=== PATIENT | male | born 1955 | race Caucasian/White ===

== ENCOUNTER 2021-05-22 17:39 | Inpatient (IN) | payer BC, SELFPAY ==
[2021-05-22] VITALS (22 sets, daily range): BP systolic 106–168; BP diastolic 53–73; PULSE 73–96; RESP 18–38; TEMP 36.8–37.1; O2SAT 92–100; BMI 24.5
--- NOTE | 2021-05-22 17:54 | DI.RAD.S_ITS ---
PROCEDURE: XR CHEST 1V INDICATIONS: chest pain TECHNIQUE: One view of the chest was acquired. COMPARISON: None. FINDINGS: Surgical changes and devices: Sternal wires and fixation devices are noted. Lungs and pleura: Bibasilar opacities are present predominantly within the bases. Blunting of the costophrenic angles are present. Mediastinum: Mediastinal contours appear normal. Heart size is normal. Bones and chest wall: No suspicious bony lesions. Overlying soft tissues appear unremarkable. IMPRESSION: Mild bilateral effusions with superimposed edema versus atelectasis/pneumonia. Dictated by: Latoya Perry M.D. on 05/22/2021 at 18:24 Approved by: Latoya Perry M.D. on 05/22/2021 at 18:24
--- NOTE | 2021-05-22 18:06 | ED.SOB ---
HPI - SOB/Dyspnea General Chief Complaint: Shortness of Breath/Dyspnea Stated Complaint: DIFFICULTY BREATHING/PAIN Time Seen by Provider: 05/22/21 18:05 Source: patient and family () Mode of arrival: Wheelchair Limitations: no limitations History of Present Illness HPI Narrative: This is a 66-year-old male who had a cardiac arrest with CPR performed when he was about to be intubated a week ago at [facility]. Patient states that he was told he was having an impending heart attack and was transferred to [facility]. Patient states they talked about catheterizing the patient but he did not wish to do this secondary to concerns that he would not tolerate anesthesia. He is clear that he is DNR/DNI but is open to other medical interventions such as BiPAP or medication. Patient states that he has had pain between both shoulder blades into his right arm since the event. He has had increasing shortness of breath. He states the 1st 2 days he was discharged felt okay and has had increasing dyspnea. Patient was discharged home on home O2. He is typically using 2-3 L daily. He has had green productive cough no fevers. No nasal congestion. He reports testing positive for RSV he has not had any nausea or vomiting. No diaphoresis. He denies any diarrhea or new urinary changes. Patient is on Xarelto daily cording him in his he does have history of atrial fibrillation, he has had a multi vessel CABG but no stents afterwards. Patient does take insulin for diabetes, uses albuterol and nebs, infliximab intravenously for rheumatoid arthritis, levothyroxine, metoprolol, rosuvastatin, spironolactone and is also on ellipse. Patient did have his Lasix, hydralazine stopped. He is accompanied by his who assists with a large amount of his history. Related Data Home Medications Medication Instructions Recorded Confirmed acetaminophen 325 mg capsule 650 mg PO Q6H PRN 05/22/21 05/22/21 albuterol 90 mcg/actuation aerosol 90 mcg INHALATION Q6HR PRN 05/22/21 05/22/21 inhaler aspirin 81 mg capsule 81 mg PO QAM 05/22/21 05/22/21 bisacodyl 5 mg tablet,delayed 5 mg PO BID PRN 05/22/21 05/22/21 release (Dulcolax (bisacodyl)) cholecalciferol (vitamin D3) 25 12.5 mcg PO QAM 05/22/21 05/22/21 mcg (1,000 unit) tablet dulaglutide 1.5 mg/0.5 mL 0.75 mg SUBCUT QWEEK 05/22/21 05/22/21 subcutaneous pen injector (Trulicity) ferrous sulfate 325 mg (65 mg 325 mg PO Q OTHER DAY 05/22/21 05/22/21 iron) capsule,extended release fluticasone fur. 200 mcg-umeclid 1 inh INHALATION QAM 05/22/21 05/22/21 62.5 mcg-vilant 25 mcg inhalat.powder (Trelegy Ellipta) folic acid 1 mg tablet 1 mg PO BEDTIME 05/22/21 05/22/21 gabapentin 100 mg capsule 100 mg PO TID 05/22/21 05/22/21 glimepiride 4 mg tablet 4 mg PO QAM 05/22/21 05/22/21 infliximab 100 mg intravenous 100 mg IV Q4W 05/22/21 05/22/21 solution insulin aspart U-100 100 unit/mL 1 sliding scale dose SUBCUT 05/22/21 05/22/21 subcutaneous cartridge USEASDIRECTD insulin glargine 100 unit/mL 10 unit SUBCUT QPM 05/22/21 05/22/21 subcutaneous cartridge ipratropium 0.5 mg-albuterol 3 mg 3 ml INHALATION Q6HR 05/22/21 05/22/21 (2.5 mg base)/3 mL nebulization soln levothyroxine 137 mcg tablet 137 mcg PO QAM 05/22/21 05/22/21 methotrexate (PF) 22.5 mg/0.4 mL 22.5 mg SUBCUT QWEEK 05/22/21 05/22/21 subcutaneous auto-injector (Otrexup (PF)) metoprolol succinate 25 mg 12.5 mg PO QAM 05/22/21 05/22/21 tablet,extended release 24 hr montelukast 10 mg tablet 10 mg PO BEDTIME 05/22/21 05/22/21 xfodssdhnbvz-fgrwrugy-zcummy tablet 1 tab PO QAM 05/22/21 05/22/21 nitroglycerin 0.4 mg sublingual See Rx Instructions .ROUTE .COMPLEX 05/22/21 05/22/21 tablet pantoprazole 40 mg tablet,delayed 30 mg PO QAM 05/22/21 05/22/21 release pramipexole 1 mg tablet 2 mg PO BEDTIME 05/22/21 05/22/21 rivaroxaban 20 mg tablet (Xarelto) 20 mg PO QAM 05/22/21 05/22/21 rosuvastatin 40 mg tablet 40 mg PO BEDTIME 05/22/21 05/22/21 spironolactone 25 mg tablet 25 mg PO QAM 05/22/21 05/22/21 varenicline 1 mg tablet 1 mg PO BID 05/22/21 05/22/21 Allergies Allergy/AdvReac Type Severity Reaction Status Date / Time No Known Drug Allergies Allergy Verified 05/22/21 18:44 Review of Systems Review of Systems ROS Unobtainable: All systems reviewed & are unremarkable except as noted in HPI and below Patient History Medical History CAD (coronary artery disease) COPD (chronic obstructive pulmonary disease) Diabetes type 2, uncontrolled HFrEF (heart failure with reduced ejection fraction) History of cardiac arrest Hx of non-ST elevation myocardial infarction (NSTEMI) Hx of pneumonia due to Klebsiella pneumoniae Hypothyroidism KAYLAN treated with BiPAP Paroxysmal atrial fibrillation Tobacco dependence Surgical History Hx of four vessel coronary artery bypass graft Hx of prior ablation treatment Family History Father Alcoholism and drug addiction in family Mother Alzheimer disease Social History household members: spouse Smoking Status: Former smoker alcohol intake: never Exam Narrative Exam Narrative: GEN: Male appearing older than stated age, alert and oriented x 3, patient appears to be in moderate distress. HEENT: Atraumatic, pupils are equal round reactive to light, extraocular movements are intact, nares are clear. HEART: Regular rate and rhythm without murmur, clicks, rubs. Positive JVD. Bilateral lower pedal edema. LUNGS:Lungs mild crackles bilateral bases, no wheezes, chest moves symmetrically, positive for tachypnea. Speaks in 4-5 word sentences. ABD:bowel sounds normal, soft, non-tender, nondistended, no guarding, rebound, rigidity, no masses noted, no hepatosplenomegaly :No CVA tenderness MSCL: Non-tender, full range of motion, NEURO:CN 2-12 intact, sensation normal SKIN: No rash, skin changes or other changes noted. Initial Vital Signs Initial Vital Signs: Vital Signs Temperature 98.8 F 05/22/21 18:00 Course Orders Ordered: ED Orders 05/22/21 19:50 Troponin I Stat 05/22/21 20:35 EKG-12 Lead Stat Albuterol/Ipratropium (Albuterol/Ipratropium 3 Ml Ampul) 3 ml INH [id number] [facility] Last Admin: 05/23/21 01:02 Dose: 3 ml Documented by: LY Aspirin (Aspirin 81 Mg Chew Tab) 81 mg PO DAILY [facility] Atorvastatin Calcium (Atorvastatin 20 Mg Tablet) 80 mg PO BEDTIME [facility] Bisacodyl (Bisacodyl 5 Mg Tablet) 5 mg PO BID PRN PRN Reason: Constipation Dextrose (Dextrose 50 % In Water 25 Gm/50 Ml Syringe) 25 gm IV PRN PRN PRN Reason: Hypoglycemia Insulin Glargine (Insulin Glargine 100 Unit/Ml 3ml Pen) 10 unit SUBCUT QPM [facility] Insulin Human Lispro (Insulin Lispro 100 Unit/Ml 3ml Vial) 0 unit SUBCUT ACHS [facility]; Protocol Levothyroxine Sodium (Levothyroxine 25 Mcg Tablet) 25 mcg PO 0600 [facility] Levothyroxine Sodium (Levothyroxine 112 Mcg Tablet) 112 mcg PO 0600 [facility] Metoprolol Succinate (Metoprolol Er 25 Mg Tablet) 12.5 mg PO DAILY [facility] Last Admin: 05/23/21 01:22 Dose: 12.5 mg Documented by: TRUMAN Montelukast Sodium (Montelukast 10 Mg Tablet) 10 mg PO BEDTIME [facility] Morphine Sulfate (Morphine 2 Mg/Ml Inj) 2 mg IV Q4HR PRN PRN Reason: Pain, Moderate (4-6) Last Admin: 05/23/21 01:36 Dose: 2 mg Documented by: TRUMAN Naloxone HCl (Naloxone 0.4 Mg/Ml Vial) 0.2 mg IV Q2MIN PRN PRN Reason: Opiate Reversal Nicotine (Nicotine 14 Patch) 14 mg TOP DAILY [facility] Last Admin: 05/23/21 01:30 Dose: 14 mg Documented by: TRUMAN Nitroglycerin (Nitroglycerin 0.4 Mg Sl Tab) 0.4 mg SL [id number] PRN PRN Reason: Chest Pain Ondansetron HCl (Ondansetron 4 Mg/2 Ml Inj) 4 mg IV Q8HR PRN PRN Reason: Nausea And Vomiting Pantoprazole Sodium (Pantoprazole Dr 40 Mg Tablet) 40 mg PO DAILY [facility] Pramipexole Dihydrochloride (Pramipexole 1 Mg Tablet) 2 mg PO BEDTIME [facility] Rivaroxaban (Rivaroxaban 10 Mg Tablet) 20 mg PO DAILYCC [facility] Sennosides (Sennosides 8.6 Mg Tablet) 17.2 mg PO BEDTIME TRACY Discontinued Medications Hydrocodone Bitart/Acetaminophen (Hydrocodone/Acet 5/325 Tablet) 2 tab PO NOW ONE Stop: 05/22/21 19:34 Last Admin: 05/22/21 19:45 Dose: 2 tab Documented by: MOLLY Furosemide (Furosemide 40 Mg/4 Ml Vial) 40 mg IV NOW ONE Stop: 05/22/21 18:53 Last Admin: 05/22/21 19:03 Dose: 40 mg Documented by: RHYS Reevaluation(s) Reevaluation #1: Patient states no change in his breathing but does not feel that he is worsening at this time. He and his both state he uses CPAP overnight. Consultations Consultation #1: Dr. Mcmullen for Dr. Borden for cardiology. No additional recommendations at this time. They do not have access to records tonight. We discussed reported history although have not obtain records. He agrees with current plan and if patient is felt to require catheterization at some point they are happy to reconsult. Consultation #2: Chio Escalona NP hospitalist service. Discussed patient appears to be in CHF exacerbation. He is not wheezy does not appear to be having a COPD exacerbation. He has described some green productive sputum, procalcitonin negative he has been afebrile. He has bilateral pulmonary effusions on x-ray with a BNP of 6000. Patient was given a dose of Lasix here in the department. We did discuss and his suspicion for pulmonary emboli is much lower as he has been on Xarelto but we did discuss obtaining an angiography if they would like and this was deferred by RODRÍGUEZ Escalona. Patient has only been hypoxic when he starts to fall asleep and does normally uses CPAP at night requiring O2. Vital Signs Vital signs: Vital Signs - 8 hr 05/22/21 19:30 05/22/21 19:45 05/22/21 20:00 Pulse Rate 92 H 89 96 H Respiratory Rate 37 H 38 H 38 H Blood Pressure 140/65 146/70 H 149/73 H Pulse Oximetry 94 96 96 05/22/21 20:15 05/22/21 20:30 05/22/21 20:45 Pulse Rate 92 H 85 84 Respiratory Rate 26 H 25 H 24 Blood Pressure 144/64 H 136/62 117/56 L Pulse Oximetry 95 93 95 05/22/21 21:00 05/22/21 21:15 05/22/21 21:30 Pulse Rate 89 91 H 85 Respiratory Rate 30 H 37 H 23 Blood Pressure 117/59 L 115/71 116/69 Pulse Oximetry 92 94 95 05/22/21 21:45 Pulse Rate 83 Respiratory Rate 24 Blood Pressure 130/67 Pulse Oximetry 95 MDM - SOB/Dyspnea Lab Data Result diagrams: 05/22/21 18:00 05/22/21 18:00 Labs: Lab Results 05/22/21 05/22/21 05/22/21 Range/Units 18:00 18:00 18:00 WBC 9.4 (4.5-11.0) X10^3/uL RBC 3.22 L (4.5-5.9) X10^6/uL Hgb 9.7 L (13.5-17.5) g/dL Hct 29.5 L (41-53) % MCV 91.7 (80-100) fL MCH 30.0 (26-34) PG MCHC 32.8 (30-36) % RDW 18.8 H (11.6-14.8) % Plt Count 553 H (150-400) X10^3/uL Neut % (Auto) 78.1 H (50-75) % Lymph % (Auto) 17.5 L (25-40) % [place] % (Auto) 1.6 L (3-14) % Eos % (Auto) 2.1 (2-4) % Baso % (Auto) 0.7 (0-2) % Neut # (Auto) 7400 H (8496-0429) /uL Lymph # (Auto) 1700 (7950-4717) /uL [place] # (Auto) 200 (0-900) /uL Eos # (Auto) 200 (0-450) /uL Baso # (Auto) 100 (0-100) /uL Sodium 139 (137-145) mmol/L Potassium 5.2 H (3.4-5.1) mmol/L Chloride 104 (98-107) mmol/L Carbon Dioxide 34 H (22-32) mmol/L BUN 21 H (9-20) mg/dL Creatinine 1.24 (0.66-1.25) mg/dL Estimated GFR 58.7 L (>60) mL/min BUN/Creatinine Ratio 16.9 (6-22) Glucose 118 H (80-110) mg/dL Hemoglobin A1c (4.0-6.0) % Calcium 10.0 (8.4-10.2) mg/dL Magnesium 2.4 H (1.6-2.3) mg/dL Total Bilirubin 0.5 (0.2-1.3) mg/dL AST 46 (17-59) IU/L ALT 40 (<50) IU/L Alkaline Phosphatase 311 H (38-126) U/L Total Creatine Kinase < 20 L (55-170) U/L CK-MB (CK-2) TNP CK-MB (CK-2) Rel Index TNP Troponin I 0.016 (0.01-0.034) ng/mL NT-Pro-B Natriuret Pep 6820 H (<125) pg/mL Total Protein 9.3 H (6.3-8.2) g/dL Albumin 3.5 (3.5-5.0) g/dL Globulin 5.8 H (1.7-4.1) g/dL Albumin/Globulin Ratio 0.6 L (1.0-2.8) Lipase 56 (23-300) U/L Procalcitonin (<0.5) ng/mL Chlamy pneumoniae PCR (Not Detect) Adenovirus (PCR) (Not Detect) B. pertussis DNA (PCR) (Not Detecte) B.parapertussis DNA PCR (Not Detecte) Coronavirus OC43 (PCR) (Not Detect) Coronavirus HKU1 (PCR) (Not Detect) Coronavirus 229E (PCR) (Not Detect) SARS-CoV-2 (PCR) Negative (Negative) Coronavirus NL63 (PCR) (Not Detect) Human Metapneumovir PCR (Not Detect) Influenza Type A (PCR) (Not Detect) Influenza Type B (PCR) (Not Detect) M. pneumoniae (PCR) (Not Detect) Parainfluenza 1 (PCR) (Not Detect) Parainfluenza 2 (PCR) (Not Detect) Parainfluenza 3 (PCR) (Not Detect) Parainfluenza 4 (PCR) (Not Detect) RSV (PCR) (Not Detect) Entero/Rhino (PCR) (Not Detect) 05/22/21 05/22/21 05/22/21 Range/Units 18:00 18:00 18:18 WBC (4.5-11.0) X10^3/uL RBC (4.5-5.9) X10^6/uL Hgb (13.5-17.5) g/dL Hct (41-53) % MCV (80-100) fL MCH (26-34) PG MCHC (30-36) % RDW (11.6-14.8) % Plt Count (150-400) X10^3/uL Neut % (Auto) (50-75) % Lymph % (Auto) (25-40) % [place] % (Auto) (3-14) % Eos % (Auto) (2-4) % Baso % (Auto) (0-2) % Neut # (Auto) (9747-1136) /uL Lymph # (Auto) (8352-6681) /uL [place] # (Auto) (0-900) /uL Eos # (Auto) (0-450) /uL Baso # (Auto) (0-100) /uL Sodium (137-145) mmol/L Potassium (3.4-5.1) mmol/L Chloride (98-107) mmol/L Carbon Dioxide (22-32) mmol/L BUN (9-20) mg/dL Creatinine (0.66-1.25) mg/dL Estimated GFR (>60) mL/min BUN/Creatinine Ratio (6-22) Glucose (80-110) mg/dL Hemoglobin A1c 7.5 H (4.0-6.0) % Calcium (8.4-10.2) mg/dL Magnesium (1.6-2.3) mg/dL Total Bilirubin (0.2-1.3) mg/dL AST (17-59) IU/L ALT (<50) IU/L Alkaline Phosphatase (38-126) U/L Total Creatine Kinase (55-170) U/L CK-MB (CK-2) CK-MB (CK-2) Rel Index Troponin I (0.01-0.034) ng/mL NT-Pro-B Natriuret Pep (<125) pg/mL Total Protein (6.3-8.2) g/dL Albumin (3.5-5.0) g/dL Globulin (1.7-4.1) g/dL Albumin/Globulin Ratio (1.0-2.8) Lipase (23-300) U/L Procalcitonin 0.18 (<0.5) ng/mL Chlamy pneumoniae PCR Not detected (Not Detect) Adenovirus (PCR) Not detected (Not Detect) B. pertussis DNA (PCR) Not detected (Not Detecte) B.parapertussis DNA PCR Not detected (Not Detecte) Coronavirus OC43 (PCR) Not detected (Not Detect) Coronavirus HKU1 (PCR) Not detected (Not Detect) Coronavirus 229E (PCR) Not detected (Not Detect) SARS-CoV-2 (PCR) Not detected (Negative) Coronavirus NL63 (PCR) Not detected (Not Detect) Human Metapneumovir PCR Not detected (Not Detect) Influenza Type A (PCR) Not detected (Not Detect) Influenza Type B (PCR) Not detected (Not Detect) M. pneumoniae (PCR) Not detected (Not Detect) Parainfluenza 1 (PCR) Not detected (Not Detect) Parainfluenza 2 (PCR) Not detected (Not Detect) Parainfluenza 3 (PCR) Not detected (Not Detect) Parainfluenza 4 (PCR) Not detected (Not Detect) RSV (PCR) Not detected (Not Detect) Entero/Rhino (PCR) Not detected (Not Detect) 05/22/21 Range/Units 19:50 WBC (4.5-11.0) X10^3/uL RBC (4.5-5.9) X10^6/uL Hgb (13.5-17.5) g/dL Hct (41-53) % MCV (80-100) fL MCH (26-34) PG MCHC (30-36) % RDW (11.6-14.8) % Plt Count (150-400) X10^3/uL Neut % (Auto) (50-75) % Lymph % (Auto) (25-40) % [place] % (Auto) (3-14) % Eos % (Auto) (2-4) % Baso % (Auto) (0-2) % Neut # (Auto) (0794-8774) /uL Lymph # (Auto) (5898-7050) /uL [place] # (Auto) (0-900) /uL Eos # (Auto) (0-450) /uL Baso # (Auto) (0-100) /uL Sodium (137-145) mmol/L Potassium (3.4-5.1) mmol/L Chloride (98-107) mmol/L Carbon Dioxide (22-32) mmol/L BUN (9-20) mg/dL Creatinine (0.66-1.25) mg/dL Estimated GFR (>60) mL/min BUN/Creatinine Ratio (6-22) Glucose (80-110) mg/dL Hemoglobin A1c (4.0-6.0) % Calcium (8.4-10.2) mg/dL Magnesium (1.6-2.3) mg/dL Total Bilirubin (0.2-1.3) mg/dL AST (17-59) IU/L ALT (<50) IU/L Alkaline Phosphatase (38-126) U/L Total Creatine Kinase (55-170) U/L CK-MB (CK-2) CK-MB (CK-2) Rel Index Troponin I 0.018 (0.01-0.034) ng/mL NT-Pro-B Natriuret Pep (<125) pg/mL Total Protein (6.3-8.2) g/dL Albumin (3.5-5.0) g/dL Globulin (1.7-4.1) g/dL Albumin/Globulin Ratio (1.0-2.8) Lipase (23-300) U/L Procalcitonin (<0.5) ng/mL Chlamy pneumoniae PCR (Not Detect) Adenovirus (PCR) (Not Detect) B. pertussis DNA (PCR) (Not Detecte) B.parapertussis DNA PCR (Not Detecte) Coronavirus OC43 (PCR) (Not Detect) Coronavirus HKU1 (PCR) (Not Detect) Coronavirus 229E (PCR) (Not Detect) SARS-CoV-2 (PCR) (Negative) Coronavirus NL63 (PCR) (Not Detect) Human Metapneumovir PCR (Not Detect) Influenza Type A (PCR) (Not Detect) Influenza Type B (PCR) (Not Detect) M. pneumoniae (PCR) (Not Detect) Parainfluenza 1 (PCR) (Not Detect) Parainfluenza 2 (PCR) (Not Detect) Parainfluenza 3 (PCR) (Not Detect) Parainfluenza 4 (PCR) (Not Detect) RSV (PCR) (Not Detect) Entero/Rhino (PCR) (Not Detect) Imaging Data Chest x-ray: Radiologist's Impression: Timi Piper??66??M??1955 ? Allergy/Adv: No Known Drug Allergies (More??) Close Chest X-Ray (Signed) Latoya Perry - 05/22/21 [address]?[place] [address] XRay Report Signed Patient: Timi Piper MR#: [id number] : 1955 Acct:[id number] Age/Sex: 66 / M Date of Service: 05/22/21 Loc: ED Accession Number: [id number] ?? Procedure: XR chest 1V Ordering Provider: Susan Jimenez MD PROCEDURE:? XR CHEST 1V ? INDICATIONS:? chest pain ? TECHNIQUE:? One view of the chest was acquired.? ? COMPARISON:? None. ? FINDINGS:? ? Surgical changes and devices:? Sternal wires and fixation devices are noted. ? Lungs and pleura:? Bibasilar opacities are present predominantly within the bases.? Blunting of the costophrenic angles are present. ? Mediastinum:? Mediastinal contours appear normal.? Heart size is normal.? ? Bones and chest wall:? No suspicious bony lesions.? Overlying soft tissues appear unremarkable.? ? IMPRESSION:? Mild bilateral effusions with superimposed edema versus atelectasis/pneumonia. ? ? Dictated by: Latoya Perry M.D. on 05/22/2021 at 18:24 ? ? Approved by: Latoya Perry M.D. on 05/22/2021 at 18:24? ECG Data Attestation: I personally reviewed and interpreted this ECG as follows: Prior ECG tracings: not available for review Interpretation: Junctional rhythm, rate of 90, QRS 82 and QTC of 491. Patient has deep T-wave inversions in lateral leads V3 through V4. With changes in V1 V2. Patient also has inversions in leads 1 to and AVF. Patient does not have prior for comparison. MDM Narrative Medical decision making narrative: This is a 66-year-old male with complaint of increasing shortness of breath status post CPR approximately a week ago as described by him and his . The exact inciting events are unclear but is described as a respiratory illness and patient was about to be intubated and coded. Patient was transferred to [facility]. We are trying to obtain records but have not been successful so far. Patient states that while there he was extubated, offered cardiac catheterization but deferred secondary to concerns that he may not tolerate anesthesia. Patient is very clear he does not wish to have CPR intubation but he is open to BiPAP or IV medications. He does appear to be in CHF today, he does not appear to have a COPD exacerbation or infectious cause of his symptoms. PE seems less likely at this time as he is anticoagulated. I did discuss whether not to obtain CT angio with hospitalist service and at this time is deferred. Patient was given Lasix. He was set up with CPAP similar to when he normally uses at home he had not been requiring more oxygen except when he falls asleep. I did consult with his Cardiology team but they had no additional recommendations at this time. Patient is reluctant to have cardiac catheterization if required and unclear if this is truly necessary but the possibility was discussed. Discharge Plan Departure Patient Disposition: Admitted As Inpatient Clinical Impression: CHF (congestive heart failure), Anemia, Pleural effusion Admit Date/Time: 05/22/21 21:51 Admit Provider: Beverly Escalona
[2021-05-22 18:24] LABS: Add Manual Diff / Slide Review NO; Basophils Absolute Auto 100 /uL (0-100); Basophils Percent Auto 0.7 % (0-2); Eosinophils Absolute Auto 200 /uL (0-450); Eosinophils Percent Auto 2.1 % (2-4); Hematocrit 29.5 % (41-53); Hemoglobin 9.7 g/dL (13.5-17.5); Lymphocytes Absolute Auto 1700 /uL (1100-4500); Lymphocytes Percent Auto 17.5 % (25-40); Mean Corpuscular HGB Conc 32.8 % (30-36); Mean Corpuscular Volume 91.7 fL (80-100); Monocytes Absolute Auto 200 /uL (0-900); Monocytes Percent Auto 1.6 % (3-14); Neutrophils Absolute Auto 7400 /uL (1500-7000); Neutrophils Percent Auto 78.1 % (50-75); Platelet Count 553 X10^3/uL (150-400); Red Blood Cell Count 3.22 X10^6/uL (4.5-5.9); Red Cell Distribution Width 18.8 % (11.6-14.8); White Blood Cell Count 9.4 X10^3/uL (4.5-11.0)
[2021-05-22 18:27] LABS: COVID19 -Nasal RAPID Negative (Negative)
[2021-05-22 18:48] LABS: Alanine Aminotransferase 40 IU/L (<50); Albumin 3.5 g/dL (3.5-5.0); Albumin Globulin Ratio 0.6 (1.0-2.8); Alkaline Phosphatase 311 U/L (38-126); Aspartate Aminotransferase 46 IU/L (17-59); BUN Creatinine Ratio 16.9 (6-22); Bilirubin Total 0.5 mg/dL (0.2-1.3); Blood Urea Nitrogen 21 mg/dL (9-20); Carbon Dioxide 34 mmol/L (22-32); Chloride 104 mmol/L (98-107); Creatine Kinase < 20 U/L (55-170); Estimated Glomerular Filt Rate 58.7 mL/min (>60); Globulin 5.8 g/dL (1.7-4.1); Glucose 118 mg/dL (80-110); HEMOLYSIS < 15 (0-50); Lipase 56 U/L (23-300); Magnesium 2.4 mg/dL (1.6-2.3); Potassium 5.2 mmol/L (3.4-5.1); Sodium 139 mmol/L (137-145); Total Protein 9.3 g/dL (6.3-8.2)
[2021-05-22 18:59] LABS: NT-proBNP (BNP-Adult 18+) 6820 pg/mL (<125); Troponin I 0.016 ng/mL (0.01-0.034)
[2021-05-22] MEDS: FUROSEMIDE 40 MG/4 ML VIAL IV (19:03)
[2021-05-22 19:14] LABS: Procalcitonin 0.18 ng/mL (<0.5)
[2021-05-22] MEDS: HYDROCODONE/ACET 5/325 TABLET 2 TAB PO (19:45)
[2021-05-22 19:53] LABS: Adenovirus Not Detected (Not Detect); B. parapertussis Not Detected (Not Detecte); Bordetella pertussis Not Detected (Not Detecte); Chlamydophila pneumoniae Not Detected (Not Detect); Coronavirus 229E Not Detected (Not Detect); Coronavirus HKU1 Not Detected (Not Detect); Coronavirus NL 63 Not Detected (Not Detect); Coronavirus OC43 Not Detected (Not Detect); Human Metapneumovirus Not Detected (Not Detect); Human Rhinovirus/Enterovirus Not Detected (Not Detect); Influenza A Not Detected (Not Detect); Influenza B Not Detected (Not Detect); Mycoplasma pneumoniae Not Detected (Not Detect); Parainfluenza Virus 1 Not Detected (Not Detect); Parainfluenza Virus 2 Not Detected (Not Detect); Parainfluenza Virus 3 Not Detected (Not Detect); Parainfluenza Virus 4 Not Detected (Not Detect); Respiratory Syncytial Virus Not Detected (Not Detect); SARS- CoV-2 Not Detected (Not Detecte)
[2021-05-22 20:23] LABS: Troponin I 0.018 ng/mL (0.01-0.034)
--- NOTE | 2021-05-22 23:08 | PC.NURSE ---
Addendum entered by Nikki Lewis R.N. 05/23/21 02:08: Received orders, patient placed on tele, medications given as ordered. Patient reports pain to right heel and buttocks. Both areas are red, blanchable. Placed waffle cushion under buttocks and barrier cream applied. Heels floating on pillow and repositioning every 2 hours. Original Note: Patient arrived to AC unit at 2235, spouse present. Patient transferred to bed by slideboard. Alert and oriented x 4, able to make needs known. 93% via nasal canula on 3L. Renee placed in ED, draining clear, yellow urine.
--- NOTE | 2021-05-22 23:55 | PM.HP.1 ---
History of Present Illness History of Present Illness Date Patient Seen: 05/22/21 Time Patient Seen: 23:00 Chief complaint: Suspected COPD/CHF Exacerbation Narrative: Timi Piper is a 66 y.o. male recently relocated from [place] with a significant cardiac history presented today to the ED for increased shortness of breath, found by the ED provider to be in congestive heart failure and chronic obstructive pulmonary disease to be in exacerbation. He is status post 4 vessel bypass in 2019, postoperative atrial fibrillation status post ablation in June of 2020 anticoagulated on rivaroxaban with mild to moderate aortic stenosis, diabetes type 2, hypertension, continued tobacco use, COPD, obstructive sleep apnea on BiPAP, hypothyroidism and rheumatoid arthritis. Much of this history is obtained from the patient's and his PCP, Dr. Yusuf Costa his family medicine [facility] physician in [place], [place] as well as review of hospital records from [facility] that Dr. Costa faxed over to me. He complains of significant right sided pain in his scapula and ribs due to the CPR that was done on 05/02. He states he is weak and unable to do activities of daily living. He denies nausea or vomiting, abdominal or chest pain, dysuria, diarrhea or constipation. He does endorse having neuropathy of both of his feet and exertional intolerance. The patient was discharged approximately 3 days ago from the [facility] after a 2-week stay initially for hypoxia and having multiple PEAs arrest prior to and during transport. On May 02, he presented to [facility] in [place]. We do not have [facility]'s records however per his PCP he was found to have tested positive for RSV and was hypoxic. He states that [facility]'s ED had given him a neb treatment and then the patient became very hypoxic and was intubated at [facility]. According to Dr. Costa, the patient went into PEA and was coded while being wheeled out to [facility]. He was then returned back to the [facility] ED were the patient was noted to have gone into PEA and subsequently had two more PEA arrests. Apparently the patient also needed to be intubated twice as the 1st intubation resulted in the to being advanced too far. He was eventually air transported to [facility] and per the notes that I have received from their facility in the CCU for a COPD exacerbation requiring intubation secondary to RSV. He was also found to have a non STEMI, post TTE indicated moderate left ventricular systolic dysfunction with an EF of 40% and at that time troponin peaked at 0.64. Per their report he required pressors had H age ELIUD secondary to diabetic ketoacidosis. He was treated for COPD exacerbation with steroids and antibiotics. They also transfer him to acute care due to her worsening respiratory status and was found to have a Klebsiella pneumonia and treated for 7 days of antibiotics secondary to possible aspiration due to endotracheal tube irrigation. Patient was transferred back to the acute care floor on May 13 and weaned off oxygen with pulmonary hygiene, inhaler and DuoNebs. He did develop chest pain on May 16 with of mildly elevated troponin of 0.8 and worsening T-wave inversions in leads V1 through V6 and started on a heparin drip for 2 days. They did a second TTE which showed a improved ejection fraction to 69%. Per Dr. Costa, he developed an NATALY during his admission after being started on an ARB, which was discontinued. During the patient's stay he did not want to undergo invasive treatment and declined rehab. Per the notes Palliative Care was consulted and the patient decided to be DNR/DNI status but is amenable to medical management and possibly going to rehab for strengthening and mobilization. [facility] records that were sent with the patient when he arrived to the medical floor were of a post discharge visit to their facility for shortness of breath and discharged on the same day. Chest x-ray ordered by the emergency department reported ?Mild bilateral effusions with superimposed edema versus atelectasis/pneumonia. He was administered a 1 time dose of IV Lasix 40 mg in the ED. Patient's temp is 98.3?, blood pressure 129/50, heart rate 81, respiratory rate 20, oxygen saturation of 96% on 3 L, he weighs 77.5 kg with a BMI of 24.5. He is mildly anemic with a hemoglobin and hematocrit of 9.7 and 29.5 respectively, platelet count is 553, he does have a left shift with a mildly elevated neutrophil count of 7400, his potassium is 5.2, CO2 34 BUN 21 creatinine 1.24 with EGFR of 58.7, glucose is elevated at 118, magnesium 2.4, alk-phos 311, total CK less than 20, his proBNP is 6280, his troponin is normal, procalcitonin is normal and viral panel including COVID-19 PCR is negative. Patient History Medical History CAD (coronary artery disease) COPD (chronic obstructive pulmonary disease) Diabetes type 2, uncontrolled HFrEF (heart failure with reduced ejection fraction) History of cardiac arrest Hx of non-ST elevation myocardial infarction (NSTEMI) Hx of pneumonia due to Klebsiella pneumoniae Hypothyroidism KAYLAN treated with BiPAP Paroxysmal atrial fibrillation Tobacco dependence Surgical History Hx of four vessel coronary artery bypass graft Hx of prior ablation treatment Family & Social History Family History Father Alcoholism and drug addiction in family Mother Alzheimer disease Social History: household members spouse Prior Living Arrangements House Safety & Behavioral: Feels Safe in Current Yes Environment Been Physically Hurt or No Threatened By a Person Suicidal Ideation Description None Suicide Plan Description No Plan Tobacco & Substance use: Tobacco type cigarettes Smoking Status quit 05/11/20 alcohol intake never alcohol intake frequency 0-2 drinks per day Substance Use Type does not use Meds Home Medications and Allergies Home Medications Medication Instructions Recorded Confirmed Type acetaminophen 325 mg capsule 650 mg PO Q6H PRN 05/22/21 05/22/21 History albuterol 90 mcg/actuation aerosol 90 mcg INHALATION Q6HR PRN 05/22/21 05/22/21 History inhaler aspirin 81 mg capsule 81 mg PO QAM 05/22/21 05/22/21 History bisacodyl 5 mg tablet,delayed 5 mg PO BID PRN 05/22/21 05/22/21 History release (Dulcolax (bisacodyl)) cholecalciferol (vitamin D3) 25 12.5 mcg PO QAM 05/22/21 05/22/21 History mcg (1,000 unit) tablet dulaglutide 1.5 mg/0.5 mL 0.75 mg SUBCUT QWEEK 05/22/21 05/22/21 History subcutaneous pen injector (Trulicity) ferrous sulfate 325 mg (65 mg 325 mg PO Q OTHER DAY 05/22/21 05/22/21 History iron) capsule,extended release fluticasone fur. 200 mcg-umeclid 1 inh INHALATION QAM 05/22/21 05/22/21 History 62.5 mcg-vilant 25 mcg inhalat.powder (Trelegy Ellipta) folic acid 1 mg tablet 1 mg PO BEDTIME 05/22/21 05/22/21 History gabapentin 100 mg capsule 100 mg PO TID 05/22/21 05/22/21 History glimepiride 4 mg tablet 4 mg PO QAM 05/22/21 05/22/21 History infliximab 100 mg intravenous 100 mg IV Q4W 05/22/21 05/22/21 History solution insulin aspart U-100 100 unit/mL 1 sliding scale dose SUBCUT 05/22/21 05/22/21 History subcutaneous cartridge USEASDIRECTD insulin glargine 100 unit/mL 10 unit SUBCUT QPM 05/22/21 05/22/21 History subcutaneous cartridge ipratropium 0.5 mg-albuterol 3 mg 3 ml INHALATION Q6HR 05/22/21 05/22/21 History (2.5 mg base)/3 mL nebulization soln levothyroxine 137 mcg tablet 137 mcg PO QAM 05/22/21 05/22/21 History methotrexate (PF) 22.5 mg/0.4 mL 22.5 mg SUBCUT QWEEK 05/22/21 05/22/21 History subcutaneous auto-injector (Otrexup (PF)) metoprolol succinate 25 mg 12.5 mg PO QAM 05/22/21 05/22/21 History tablet,extended release 24 hr montelukast 10 mg tablet 10 mg PO BEDTIME 05/22/21 05/22/21 History tmhayezwiunv-frdddxaj-xkjuew tablet 1 tab PO QAM 05/22/21 05/22/21 History nitroglycerin 0.4 mg sublingual See Rx Instructions .ROUTE .COMPLEX 05/22/21 05/22/21 History tablet pantoprazole 40 mg tablet,delayed 30 mg PO QAM 05/22/21 05/22/21 History release pramipexole 1 mg tablet 2 mg PO BEDTIME 05/22/21 05/22/21 History rivaroxaban 20 mg tablet (Xarelto) 20 mg PO QAM 05/22/21 05/22/21 History rosuvastatin 40 mg tablet 40 mg PO BEDTIME 05/22/21 05/22/21 History spironolactone 25 mg tablet 25 mg PO QAM 05/22/21 05/22/21 History varenicline 1 mg tablet 1 mg PO BID 05/22/21 05/22/21 History Allergies Allergy/AdvReac Type Severity Reaction Status Date / Time No Known Drug Allergies Allergy Verified 05/22/21 18:44 Review of Systems Review of Systems ROS: Yes All systems reviewed with the patient and are negative except as otherwise documented Exam Vital Signs (past 8 hours): - 05/22/21 18:00 05/22/21 18:08 05/22/21 18:13 Temperature 98.8 F Pulse Rate 91 H 92 H Respiratory Rate 34 H 35 H Blood Pressure 159/73 H Pulse Oximetry 94 100 05/22/21 18:14 05/22/21 18:15 05/22/21 18:30 Temperature Pulse Rate 91 H 93 H 90 Respiratory Rate 37 H 35 H 35 H Blood Pressure 157/72 H 159/73 H 168/67 H Pulse Oximetry 100 99 97 05/22/21 18:45 05/22/21 19:00 05/22/21 19:15 Temperature Pulse Rate 92 H 73 77 Respiratory Rate 37 H 31 H 28 H Blood Pressure 143/63 H 106/53 L 128/60 Pulse Oximetry 94 94 94 05/22/21 19:30 05/22/21 19:45 05/22/21 20:00 Temperature Pulse Rate 92 H 89 96 H Respiratory Rate 37 H 38 H 38 H Blood Pressure 140/65 146/70 H 149/73 H Pulse Oximetry 94 96 96 05/22/21 20:15 05/22/21 20:30 05/22/21 20:45 Temperature Pulse Rate 92 H 85 84 Respiratory Rate 26 H 25 H 24 Blood Pressure 144/64 H 136/62 117/56 L Pulse Oximetry 95 93 95 05/22/21 21:00 05/22/21 21:15 05/22/21 21:30 Temperature Pulse Rate 89 91 H 85 Respiratory Rate 30 H 37 H 23 Blood Pressure 117/59 L 115/71 116/69 Pulse Oximetry 92 94 95 05/22/21 21:45 05/22/21 22:00 05/22/21 22:15 Temperature Pulse Rate 83 79 80 Respiratory Rate 24 18 27 H Blood Pressure 130/67 127/58 L 112/56 L Pulse Oximetry 95 94 93 05/22/21 23:20 Temperature 98.3 F Pulse Rate 83 Respiratory Rate 18 Blood Pressure 132/58 L Pulse Oximetry Oxygen Delivery Method Nasal Cannula Oxygen Flow Rate 3 Narrative Exam Narrative: Gen: Alert, oriented, ill-appearing 66 y.o. male, appears older than stated age HEENT: normocephalic, atraumatic, conjunctiva clear, sclera non-icteric, oral mucosa pink and moist Neck: supple, full ROM, no JVD, trachea is midline Resp: Lungs tight, pursed lipped breathing on NC CV: RRR, no murmur or rubs Abd: soft, non-tender, normoactive BTs Skin: no lesions or rashes, dry and intact, poor skin turgor particularly in the LE bilaterally Neuro: Alert and oriented X 4 w/no focal deficits. Speech clear and coherent. Extremities: weak, moves all 4 extremities, is normally ambulatory, legs are thin, negative Nicky?s sign Psyche: normal mood and affect. Objective Labs Result Diagrams: 05/22/21 18:00 05/22/21 18:00 Labs: Laboratory Results - last 24 hr 05/22/21 05/22/21 05/22/21 18:00 18:00 18:00 WBC 9.4 RBC 3.22 L Hgb 9.7 L Hct 29.5 L MCV 91.7 MCH 30.0 MCHC 32.8 RDW 18.8 H Plt Count 553 H Neut % (Auto) 78.1 H Lymph % (Auto) 17.5 L [place] % (Auto) 1.6 L Eos % (Auto) 2.1 Baso % (Auto) 0.7 Neut # (Auto) 7400 H Lymph # (Auto) 1700 [place] # (Auto) 200 Eos # (Auto) 200 Baso # (Auto) 100 Sodium 139 Potassium 5.2 H Chloride 104 Carbon Dioxide 34 H BUN 21 H Creatinine 1.24 Estimated GFR 58.7 L BUN/Creatinine Ratio 16.9 Glucose 118 H Calcium 10.0 Magnesium 2.4 H Total Bilirubin 0.5 AST 46 ALT 40 Alkaline Phosphatase 311 H Total Creatine Kinase < 20 L CK-MB (CK-2) TNP CK-MB (CK-2) Rel Index TNP Troponin I 0.016 NT-Pro-B Natriuret Pep 6820 H Total Protein 9.3 H Albumin 3.5 Globulin 5.8 H Albumin/Globulin Ratio 0.6 L Lipase 56 Procalcitonin Chlamy pneumoniae PCR Adenovirus (PCR) B. pertussis DNA (PCR) B.parapertussis DNA PCR Coronavirus OC43 (PCR) Coronavirus HKU1 (PCR) Coronavirus 229E (PCR) SARS-CoV-2 (PCR) Negative Coronavirus NL63 (PCR) Human Metapneumovir PCR Influenza Type A (PCR) Influenza Type B (PCR) M. pneumoniae (PCR) Parainfluenza 1 (PCR) Parainfluenza 2 (PCR) Parainfluenza 3 (PCR) Parainfluenza 4 (PCR) RSV (PCR) Entero/Rhino (PCR) 05/22/21 05/22/21 05/22/21 18:00 18:18 19:50 WBC RBC Hgb Hct MCV MCH MCHC RDW Plt Count Neut % (Auto) Lymph % (Auto) [place] % (Auto) Eos % (Auto) Baso % (Auto) Neut # (Auto) Lymph # (Auto) [place] # (Auto) Eos # (Auto) Baso # (Auto) Sodium Potassium Chloride Carbon Dioxide BUN Creatinine Estimated GFR BUN/Creatinine Ratio Glucose Calcium Magnesium Total Bilirubin AST ALT Alkaline Phosphatase Total Creatine Kinase CK-MB (CK-2) CK-MB (CK-2) Rel Index Troponin I 0.018 NT-Pro-B Natriuret Pep Total Protein Albumin Globulin Albumin/Globulin Ratio Lipase Procalcitonin 0.18 Chlamy pneumoniae PCR Not detected Adenovirus (PCR) Not detected B. pertussis DNA (PCR) Not detected B.parapertussis DNA PCR Not detected Coronavirus OC43 (PCR) Not detected Coronavirus HKU1 (PCR) Not detected Coronavirus 229E (PCR) Not detected SARS-CoV-2 (PCR) Not detected Coronavirus NL63 (PCR) Not detected Human Metapneumovir PCR Not detected Influenza Type A (PCR) Not detected Influenza Type B (PCR) Not detected M. pneumoniae (PCR) Not detected Parainfluenza 1 (PCR) Not detected Parainfluenza 2 (PCR) Not detected Parainfluenza 3 (PCR) Not detected Parainfluenza 4 (PCR) Not detected RSV (PCR) Not detected Entero/Rhino (PCR) Not detected Assessment & Plan Assessment & Plan narrative: Timi Piper will be admitted to the acute care unit for further management of an acute on chronic COPD and CHF exacerbation. 1. Acute on chronic CHF exacerbation, present on admission His proBNP was 6820 He underwent 2 transesophageal echocardiograms while at the [facility] the 1st having a 40% ejection fraction and after treatment improving to 79% ejection fraction. Do not believe at this point it is necessary to have him undergo another echocardiogram on last after consultation with his home security alarm installer they want him to have one. Will evaluate and or administer Lasix per his clinical presentation Continue home dose of spironolactone 25 mg p.o. in the morning 2. Acute on chronic COPD exacerbation, present on admission Patient will receive supplemental oxygen and albuterol and albuterol/ipratropium nebulizers as needed It may be useful to order a baseline ABG on him Continue home dose of montelukast 10 mg p.o. at bedtime Patient will be set up with BiPAP unit that he uses at bedtime. If he necessitates additional BiPAP or further oxygen requirements, he will need to be moved over to the ICU. 3. Coronary artery disease, chronic Will obtain records from his home security alarm installer Dr. Borden at [facility] in [facility] and informing him of patient's admission ([phone]) Continue home doses of metoprolol 12.5 mg in the morning and Xarelto 20 mg p.o. in the morning He has a follow-up appointment w/MERY Montesinos in Dr. Borden's office on June 22, 2021. 3. Diabetes type 2, with a hemoglobin A1c of 7.5, suboptimal control, present on admission He will have glargine 10 units daily and medium dose correctional scale Carb controlled diet 4. Hyperlipidemia, chronic Continue home dose of rosuvastatin 40 mg p.o. at bedtime 5. Hypothyroidism, chronic Continue home dose of levothyroxine 137 mcg p.o. early in the morning 6. Tobacco dependence, recently quit Patient normally takes Chantix 1 mg p.o. b.i.d. He will be offered a Nicoderm patch 14 mcg change daily VTE Prophylaxis: Wells risk score X Bilateral SCDs Patient is currently anticoagulated on rivaroxaban Patient is admitted to the inpatient service due to the severity of disease, risks of further disease progression and this stay is expected to exceed 2 midnights. FEN: IV fluids: saline lock, diet: low sodium carb controlled diet, labs: CBC, C/BMP, liver enzymes, Mag, PT/INR Consultants None Dispo: unknown at this time Code status: DNR/DNI as discussed with the patient who identifies his , Litzy his surrogate and POA. [X] I have utilized all available immediate resources to obtain, update, or review of the patient's current medications COVID-19 COVID-19 status: Negative Result date/Date tested (Pos, Neg/Pending): 05/22/21 Scores CHADS-VASc Congestive heart failure: yes Hypertension: yes Age 75 years or older: no Diabetes mellitus: yes Stroke, TIA, or TE: no Vascular disease: yes Age 65 to 74 years: no Sex category (female): Male CHADS-VASc Score: 4 Quality VTE Deep Vein Thrombosis/Pulmonary Embolism Present on Admission: No MIPS - Admit I confirm the patient?s Advance Care Plan is present, Code status is documented, Surrogate decision maker is in patient?s record [If Yes, STOP here]: Yes MIPS - DC The patient has current or prior documentation of left ventricular ejection fraction (LVEF) less than 40%, or moderate or severely depressed left ventricular systolic function.: No A. The patient was prescribed or already taking an Angiotensin-Converting Enzyme (ALONZO) Inhibitor, or Angiotensin Receptor Veronica (ARB).: No B. The patient was prescribed or already taking a beta-veronica. [If Yes to Both A & B, STOP here]: Yes Patient not prescribed/taking ALONZO or ARB for medical/patient/system reason(s) including (ex: allergy, intolerance, contraindication).: NATALY at [facility] per patient's PCP
[2021-05-23] VITALS (16 sets, daily range): BP systolic 98–129; BP diastolic 50–85; PULSE 74–90; RESP 16–24; TEMP 36.8–37.7; O2SAT 93–96
[2021-05-23] MEDS: ALBUTEROL/IPRATROPIUM 3 ML AMPUL INH ×6 (01:02→22:45)
[2021-05-23] MEDS: METOPROLOL ER 25 MG TABLET 12.5 MG PO ×2 (01:22→07:55)
[2021-05-23] MEDS: NICOTINE 14 PATCH 14 MG TOP ×2 (01:30→10:53)
[2021-05-23] MEDS: MORPHINE 2 MG/ML INJ IV ×2 (01:36→06:46)
[2021-05-23 02:48] LABS: Hemoglobin A1C% w Est Avg Glu 7.5 % (4.0-6.0)
[2021-05-23] MEDS: LEVOTHYROXINE 112 MCG TABLET PO (05:10)
[2021-05-23] MEDS: LEVOTHYROXINE 25 MCG TABLET PO (05:10)
[2021-05-23] MEDS: FUROSEMIDE 40 MG/4 ML VIAL IV (07:50)
[2021-05-23] MEDS: RIVAROXABAN 10 MG TABLET 20 MG PO (07:53)
[2021-05-23] MEDS: INSULIN LISPRO 100 UNIT/ML 3ML VIAL SUBCUT ×3 (07:59→21:10)
--- NOTE | 2021-05-23 08:15 | PC.NURSE ---
0730 pt c/o chest pain to sternum left shoulder and arm. Pain could be from fx ribs or cardiac , pt is post cardiac arrest x2 earlier this month, pain level 3/10 after scene shifter admin morphine 2mg ivp. SOB and garcía lip breathing noted rate at 20 and struggles to complete sentences spo2 on 2L nc 92%. Loose prod cough and using suction prn indep. tele afib cvr rate 60's. here orders rec'd.
[2021-05-23 08:30] LABS: Troponin I 0.016 ng/mL (0.01-0.034)
[2021-05-23] MEDS: BUDESONIDE 0.5 MG/2 ML NEB INH ×2 (09:36→20:07)
[2021-05-23 09:58] LABS: Prothrombin Time 22.8 SECONDS (10.1-12.7)
--- NOTE | 2021-05-23 10:17 | PT-IP ANOTE ---
Patient declined physical therapy at this time due to having too much pain. He describes pain in bilateral shoulders, bilateral knees, chest and ribs, and right heel. He believes he is having an RA flare-up. He reports he has never had a flare-up this bad before. He can not tell if his chest pain is cardiac or from his ribs (s/p CPR). Will continue to follow for physical therapy as tolerated by his pain.
[2021-05-23] MEDS: PANTOPRAZOLE DR 40 MG TABLET PO (10:53)
[2021-05-23] MEDS: SUCRALFATE 1 GM TABLET PO ×4 (10:53→20:44)
[2021-05-23] MEDS: guaiFENesin ER 600 MG TAB PO ×2 (10:53→20:43)
[2021-05-23] MEDS: ASPIRIN 81 MG CHEW TAB PO (10:53)
[2021-05-23] MEDS: CEFDINIR 300 MG CAPSULE PO ×2 (10:53→20:43)
[2021-05-23] MEDS: DOXYCYCLINE HYCLATE 100 MG TABLET PO ×2 (10:53→20:44)
[2021-05-23] MEDS: GABAPENTIN 100 MG CAPSULE PO ×2 (12:54→20:44)
[2021-05-23] MEDS: TRAMADOL 50 MG TABLET PO ×2 (12:54→20:44)
[2021-05-23] MEDS: methocarbamoL 500 MG TABLET PO ×2 (12:59→20:44)
--- NOTE | 2021-05-23 13:09 | CM.IDA ---
Initial DCP Assessment Note Pt is a 66 yo male, resident of [place], arrives with suspected COPD/CHF exacerbation. Patient is a daily smoker (currently using a Nicoderm patch) w/multiple co morbidities that include: DM2, COPD, hypertension, RA, significant cardiac history, s/p 4 vessel bypass in 2019. Patient was discharged from 3 days ago after a two week stay for hypoxia; with 3 separate cardiac arrests both prior to and during transport to [facility] in [place] (CPR performed w/subsequent rib fx), patient was transferred to thereafter. PCP: Dr. Yusuf Costa Payer: ALEX Perdue Reviewed chart, met w/patient and spouse Litzy to introduce role. Spouse appears to be much younger than patient. Patient/spouse have multiple children together, most grown, one 12 yo lives w/them. According to spouse, Patient is typically active and indp., up until enduring recent cardiac events. Patient is SOB and appears very tired this visit; states he does not want to be intubated but does want to do what I need to do (to live) Patient states he cannot endure any more pain but agreeable to medical treatment and SNF rehab upon DC for medical oversight and strengthening. Patient is DNR/DNI Discussed SNF options, reviewed MCR choice list and explained CM team will need to secure a SNF with bed availability and that will attempt [facility] authorization, both patient and spouse express understanding. [facility], [facility], [facility] and [facility] DENISE Purcell Discharge Planning/Care Management CM Discharge Assessment Start: 05/23/21 13:01 Freq: Status: Active Protocol: Document 05/23/21 13:01 LORA (Rec: 05/23/21 13:07 LORA [id number]) Discharge Planning Assessment Assigned Flat Knitter DENISE Silver DPOA/Assigned Designee Name Litzy Piper, spouse Contact Information [phone] Advance Directives? Yes Advance Directives on File No History Provided By Patient,Significant Other, Medical Record Prior Living Arrangements House Household Members spouse Type of transporation used prior to Drives own vehicle admit Independent with ADL's Yes: Up until recent medical events Is patient alert and oriented? Yes Needs Assistance With Meal Prep,Home Chores / Shopping Patient/Family Preference Longterm Facility Barriers to Discharge Yes Comment Lives at home w/spouse Litzy and their 12 yo son. Other children are grown and do not live at home. Recently moved from [place] Transportation Arrangement Likely w/c Additional Comment Will need referral to SNF that will consider [facility]. First choice is [facility] in [place]; however, unsure whether this facility can take [facility]. SNF/HH Preference 1. [facility] [place] nearer their home Has Agency SNF been contacted Yes Comment Faxed referral. Also faxed to [facility], [facility] for b/u options
--- NOTE | 2021-05-23 18:27 | P.PN_ITS ---
Subjective Subjective Date Patient Seen: 05/23/21 Interval history: REPORTED CHEST PAIN THIS MORNING MOSTLY MIDEPIGASTRIC AREA RADIATION TO LEFT AND RIGHT SIDE REPORTED. CHEST PAIN WORSE WITH EXERTION NO INCREASING SHORTNESS OF BREATH SPOKE TO PATIENT S AT BEDSIDE IN REGARD TO THE CASE Exam Vital Signs (past 8 hours): - 05/23/21 11:46 05/23/21 12:32 05/23/21 13:19 Temperature 98.3 F Pulse Rate 77 86 90 Respiratory Rate 16 24 Blood Pressure 98/51 L Pulse Oximetry 94 94 05/23/21 15:48 05/23/21 15:52 Temperature 98.3 F Pulse Rate 77 74 Respiratory Rate 16 22 Blood Pressure 119/58 L Pulse Oximetry 94 95 Oxygen Delivery Method BiPAP Oxygen Flow Rate 2 Narrative Exam Narrative: NO ACUTE DISTRESS. PATIENT IS AA0X3. APPEARS OLDER THAN STATED AGE HEAD ATRAUMATIC NORMOCEPHALIC NECK : SUPPLE WITHOUT ADENOPATHY NO CAROTID BRUITS EYE: EOMI, PERRLA, NORMAL CONJUNCTIVA; NO JAUNDICE CHEST: REGULAR RATE. NO RUBS. PMI IS NON DISPLACED. NO MURMURS; NORMAL S1- S2 PULMONARY: DECREASED BS OVER THE BASES. MILD BIBASILAR CRACKLES NOTED; NO INCREASED DULLNESS TO PERCUSSION ABDOMEN: SOFT. NONTENDER. NONDISTENDED. BOWEL SOUNDS ARE PRESENT IN ALL 4 QUADRANTS. EXTREMITIES: NO EDEMA.. NO CYANOSIS CLUBBING NOTED. NEURO: CRANIAL NERVES 2-12 GROSSLY INTACT. NO FOCAL NEUROLOGICAL DEFICIT NOTED. MSK: NORMAL RANGE OF MOTION FOR AGE. NO JOINT EFFUSION. POOR MUSCULATURE PSYCH : APPROPRIATE MOOD AND AFFECT. ALERT, AWAKE ORIENTED X3 Objective Labs Result Diagrams: 05/22/21 18:00 05/22/21 18:00 Labs: Laboratory Results - last 24 hr 05/22/21 05/22/21 05/22/21 18:00 18:00 18:00 WBC 9.4 RBC 3.22 L Hgb 9.7 L Hct 29.5 L MCV 91.7 MCH 30.0 MCHC 32.8 RDW 18.8 H Plt Count 553 H Neut % (Auto) 78.1 H Lymph % (Auto) 17.5 L [place] % (Auto) 1.6 L Eos % (Auto) 2.1 Baso % (Auto) 0.7 Neut # (Auto) 7400 H Lymph # (Auto) 1700 [place] # (Auto) 200 Eos # (Auto) 200 Baso # (Auto) 100 PT INR Sodium 139 Potassium 5.2 H Chloride 104 Carbon Dioxide 34 H BUN 21 H Creatinine 1.24 Estimated GFR 58.7 L BUN/Creatinine Ratio 16.9 Glucose 118 H Hemoglobin A1c Calcium 10.0 Magnesium 2.4 H Total Bilirubin 0.5 AST 46 ALT 40 Alkaline Phosphatase 311 H Total Creatine Kinase < 20 L CK-MB (CK-2) TNP CK-MB (CK-2) Rel Index TNP Troponin I 0.016 NT-Pro-B Natriuret Pep 6820 H Total Protein 9.3 H Albumin 3.5 Globulin 5.8 H Albumin/Globulin Ratio 0.6 L Lipase 56 Procalcitonin Chlamy pneumoniae PCR Adenovirus (PCR) B. pertussis DNA (PCR) B.parapertussis DNA PCR Coronavirus OC43 (PCR) Coronavirus HKU1 (PCR) Coronavirus 229E (PCR) SARS-CoV-2 (PCR) Negative Coronavirus NL63 (PCR) Human Metapneumovir PCR Influenza Type A (PCR) Influenza Type B (PCR) M. pneumoniae (PCR) Parainfluenza 1 (PCR) Parainfluenza 2 (PCR) Parainfluenza 3 (PCR) Parainfluenza 4 (PCR) RSV (PCR) Entero/Rhino (PCR) 05/22/21 05/22/21 05/22/21 18:00 18:00 18:18 WBC RBC Hgb Hct MCV MCH MCHC RDW Plt Count Neut % (Auto) Lymph % (Auto) [place] % (Auto) Eos % (Auto) Baso % (Auto) Neut # (Auto) Lymph # (Auto) [place] # (Auto) Eos # (Auto) Baso # (Auto) PT INR Sodium Potassium Chloride Carbon Dioxide BUN Creatinine Estimated GFR BUN/Creatinine Ratio Glucose Hemoglobin A1c 7.5 H Calcium Magnesium Total Bilirubin AST ALT Alkaline Phosphatase Total Creatine Kinase CK-MB (CK-2) CK-MB (CK-2) Rel Index Troponin I NT-Pro-B Natriuret Pep Total Protein Albumin Globulin Albumin/Globulin Ratio Lipase Procalcitonin 0.18 Chlamy pneumoniae PCR Not detected Adenovirus (PCR) Not detected B. pertussis DNA (PCR) Not detected B.parapertussis DNA PCR Not detected Coronavirus OC43 (PCR) Not detected Coronavirus HKU1 (PCR) Not detected Coronavirus 229E (PCR) Not detected SARS-CoV-2 (PCR) Not detected Coronavirus NL63 (PCR) Not detected Human Metapneumovir PCR Not detected Influenza Type A (PCR) Not detected Influenza Type B (PCR) Not detected M. pneumoniae (PCR) Not detected Parainfluenza 1 (PCR) Not detected Parainfluenza 2 (PCR) Not detected Parainfluenza 3 (PCR) Not detected Parainfluenza 4 (PCR) Not detected RSV (PCR) Not detected Entero/Rhino (PCR) Not detected 05/22/21 05/23/21 05/23/21 19:50 08:00 09:15 WBC RBC Hgb Hct MCV MCH MCHC RDW Plt Count Neut % (Auto) Lymph % (Auto) [place] % (Auto) Eos % (Auto) Baso % (Auto) Neut # (Auto) Lymph # (Auto) [place] # (Auto) Eos # (Auto) Baso # (Auto) PT 22.8 H INR 2.0 H Sodium Potassium Chloride Carbon Dioxide BUN Creatinine Estimated GFR BUN/Creatinine Ratio Glucose Hemoglobin A1c Calcium Magnesium Total Bilirubin AST ALT Alkaline Phosphatase Total Creatine Kinase CK-MB (CK-2) CK-MB (CK-2) Rel Index Troponin I 0.018 0.016 NT-Pro-B Natriuret Pep Total Protein Albumin Globulin Albumin/Globulin Ratio Lipase Procalcitonin Chlamy pneumoniae PCR Adenovirus (PCR) B. pertussis DNA (PCR) B.parapertussis DNA PCR Coronavirus OC43 (PCR) Coronavirus HKU1 (PCR) Coronavirus 229E (PCR) SARS-CoV-2 (PCR) Coronavirus NL63 (PCR) Human Metapneumovir PCR Influenza Type A (PCR) Influenza Type B (PCR) M. pneumoniae (PCR) Parainfluenza 1 (PCR) Parainfluenza 2 (PCR) Parainfluenza 3 (PCR) Parainfluenza 4 (PCR) RSV (PCR) Entero/Rhino (PCR) [facility] Medical History CAD (coronary artery disease) COPD (chronic obstructive pulmonary disease) Diabetes type 2, uncontrolled HFrEF (heart failure with reduced ejection fraction) History of cardiac arrest Hx of non-ST elevation myocardial infarction (NSTEMI) Hx of pneumonia due to Klebsiella pneumoniae Hypothyroidism KAYLAN treated with BiPAP Paroxysmal atrial fibrillation Tobacco dependence Surgical History Hx of four vessel coronary artery bypass graft Hx of prior ablation treatment Family History Father Alcoholism and drug addiction in family Mother Alzheimer disease Social History household members: spouse Smoking Status: Former smoker alcohol intake: never Assessment & Plan Assessment & Plan narrative: PROBLEM LIST ATYPICAL CHEST PAIN. ACS RULED OUT. HISTORY OF CAD ACUTE COPD EXACERBATION POSSIBLE ACUTE EXACERBATION OF HEART FAILURE WITH PRESERVED SYSTOLIC FUNCTION POSSIBLE CHEST WALL CONTUSION. SECONDARY TO RECENT CPR. MULTIPLE BROKEN RIBS REPORTED PHYSICAL DECONDITIONING/DEBILITY INSULIN-DEPENDENT DIABETES TYPE 2 PER HISTORY HYPOTHYROIDISM FOR HISTORY HYPERTENSION PER HISTORY KAYLAN PER HISTORY PAROXYSMAL ATRIAL FIBRILLATION PER HISTORY PLAN SPOKE TO CARDIOLOGY TEAM WELL KNOWN FROM THE PATIENT AT THE TERTIARY FACILITY NEED FOR TRANSFER AT THIS TIME IS NOT SEEN PATIENT IS A DNR AND DOES NOT WANT ANY INVASIVE PROCEDURE HE DOES HAVE WELL-KNOWN HEART DISEASE HE WILL BE TREATED CONSERVATIVELY TROPONIN REPEATED THIS MORNING WAS AGAIN NEGATIVE WILL CONTINUE TO KEEP ON TELE AT ALL TIMES CONTINUE TO MONITOR CLOSELY HE WAS ALSO STARTED ON PAIN CONTROL MEDICATIONS TO HELP WITH DISCOMFORT CONTINUE TO MOBILIZE CLOSELY IF HE WORSENS OVER THE NEXT 24 HOURS, WE WILL ONCE AGAIN TRY AND TRANSFER TO TERTIARY FACILITY IF HE SO DESIRES ADDITIONAL MANAGEMENT PER CLINICAL COURSE Time Spent With Patient Critical Care time: I spent a total of [] minutes of critical care time on this patient's care today; this time is exclusive of procedural time. Quality VTE Deep Vein Thrombosis/Pulmonary Embolism Present on Admission: No
[2021-05-23] MEDS: PRAMIPEXOLE 1 MG TABLET 2 MG PO (20:43)
[2021-05-23] MEDS: ATORVASTATIN 20 MG TABLET 80 MG PO (20:43)
[2021-05-23] MEDS: MONTELUKAST 10 MG TABLET PO (20:44)
[2021-05-23] MEDS: SENNOSIDES 8.6 MG TABLET 17.2 MG PO (20:44)
[2021-05-23] MEDS: INSULIN GLARGINE 100 UNIT/ML 3ML PEN 10 UNIT SUBCUT (21:10)
[2021-05-24] VITALS (11 sets, daily range): BP systolic 117–138; BP diastolic 50–59; PULSE 71–87; RESP 16–22; TEMP 36.1–36.8; O2SAT 94–99
[2021-05-24 05:26] LABS: Add Manual Diff / Slide Review NO; Basophils Absolute Auto 0 /uL (0-100); Basophils Percent Auto 0.3 % (0-2); Eosinophils Absolute Auto 0 /uL (0-450); Hemoglobin 8.1 g/dL (13.5-17.5); Lymphocytes Absolute Auto 500 /uL (1100-4500); Lymphocytes Percent Auto 5.4 % (25-40); Mean Corpuscular HGB Conc 32.3 % (30-36); Mean Corpuscular Hemoglobin 29.6 PG (26-34); Mean Corpuscular Volume 91.6 fL (80-100); Monocytes Absolute Auto 100 /uL (0-900); Neutrophils Absolute Auto 8600 /uL (1500-7000); Neutrophils Percent Auto 93.3 % (50-75); Platelet Count 473 X10^3/uL (150-400); Red Blood Cell Count 2.73 X10^6/uL (4.5-5.9); Red Cell Distribution Width 19.1 % (11.6-14.8); White Blood Cell Count 9.3 X10^3/uL (4.5-11.0)
[2021-05-24 05:55] LABS: Magnesium 2.4 mg/dL (1.6-2.3)
[2021-05-24 05:56] LABS: Alanine Aminotransferase 25 IU/L (<50); Albumin Globulin Ratio 0.6 (1.0-2.8); Alkaline Phosphatase 229 U/L (38-126); Aspartate Aminotransferase 24 IU/L (17-59); BUN Creatinine Ratio 30.6 (6-22); Bilirubin Total 0.3 mg/dL (0.2-1.3); Blood Urea Nitrogen 44 mg/dL (9-20); Calcium 9.1 mg/dL (8.4-10.2); Carbon Dioxide 35 mmol/L (22-32); Chloride 96 mmol/L (98-107); Estimated Glomerular Filt Rate 49.4 mL/min (>60); Globulin 4.8 g/dL (1.7-4.1); Glucose 390 mg/dL (80-110); HEMOLYSIS < 15 (0-50); Sodium 131 mmol/L (137-145); Total Protein 7.8 g/dL (6.3-8.2)
[2021-05-24 06:05] LABS: Potassium 5.8 mmol/L (3.4-5.1)
[2021-05-24] MEDS: LEVOTHYROXINE 25 MCG TABLET PO (06:25)
[2021-05-24] MEDS: LEVOTHYROXINE 112 MCG TABLET PO (06:25)
[2021-05-24] MEDS: ALBUTEROL/IPRATROPIUM 3 ML AMPUL INH ×3 (08:32→19:38)
[2021-05-24] MEDS: BUDESONIDE 0.5 MG/2 ML NEB INH ×2 (08:32→19:38)
--- NOTE | 2021-05-24 09:48 | OT.IP.EVAL ---
Current Diagnoses Heart failure, unspecified (05/22/21) Past Medical History (Last Reviewed 05/23/21 @ 02:43 by MERY Wright) CAD (coronary artery disease) COPD (chronic obstructive pulmonary disease) Diabetes type 2, uncontrolled HFrEF (heart failure with reduced ejection fraction) History of cardiac arrest Hx of four vessel coronary artery bypass graft Hx of non-ST elevation myocardial infarction (NSTEMI) Hx of pneumonia due to Klebsiella pneumoniae Hx of prior ablation treatment Hypothyroidism KAYLAN treated with BiPAP Paroxysmal atrial fibrillation Tobacco dependence Surgical History (Last Reviewed 05/23/21 @ 02:43 by MERY Wright) Hx of four vessel coronary artery bypass graft Hx of prior ablation treatment Occupational Therapy Inpatient Evaluation/Re-Eval M1 PT/OT-IP Prior Functional Status Start: 05/24/21 08:30 Freq: NEEDED Status: Active Protocol: Document 05/24/21 10:40 AW (Rec: 05/24/21 11:08 AW [id number]) Medical Review Prior Functional Status Medical History Reviewed Yes Communication WNL Mobility and Gait Pt states before recent cardiac events, he was independent with all mobility. He now tends to use 4WW at home. Activities of Daily Living and IADL's Independent with ADL's. Pt drives. Prior Functional Level (Other details) Pt discharged from 4 days ago where he was admitted with RSV. He had AR x 2-3 and underwent CPR which broke his ribs. At discharge, he was using 2-3 L/min supplemental O2. He states he has been having pain in R posterior shoulder, ribs, bilateral knees, and right heel. He feels his pain has improved with steriod treatment and wonders if some of his pain was a result of an RA flare. Pt states he has orders but [facility] has not yet initiated service. Social History Household Members spouse,children Living Arrangements House Number of Floors (Floors) One Floor Number of Stairs To Enter/Railing? 1 NEVILLE. Pt states he uses the doorknob as needed for balance . Home Environment Standard Height Toilet,Walk in Shower Home Equipment Four Wheel Walker,Hand Held Shower,Rheostat Assembler,Grab Bars In Shower Additional Social History Comment Pt recently relocated from [place]. He lives in [place] with his and their 12 yo son. He has grown children who do not live nearby. He has a sister in [place] who is 10 years older. Pt's does not work outside the home and will be able to assist as needed when pt goes home. M2 OT-IP Current Condition Start: 05/24/21 11:18 Freq: Status: Active Protocol: Document 05/24/21 09:00 [facility] (Rec: 05/24/21 11:32 [facility] [id number]) Occupational Therapy Current Condition Current Condition Evaluation Date 05/24/21 Treatment Diagnosis CHF exacerbation Diagnosis Onset Date 05/22/21 M3 OT- IP Subjective and Pain Start: 05/24/21 11:18 Freq: Status: Active Protocol: Document 05/24/21 09:00 [facility] (Rec: 05/24/21 11:32 [facility] [id number]) OT- Subjective Occupational Therapy Visit Type Type Initial Evaluation Visit Start Time 09:00 Visit Stop Time 09:48 Total Visit Minutes 48 Occupational Therapy Visit Comments Patient Comments Pt agreed to get up and wanting to have a bowel movement. Patient/Caregiver Goals To go home. OT Pain Assessment Pain When Pain Assessed During Mobility Pain Present Pain Present Pain Reported Location Right Arm Intensity 2 Scale Used Numeric (0 - 10) M4 OT- IP ADL's Start: 05/24/21 11:18 Freq: Status: Active Protocol: Document 05/24/21 09:00 [facility] (Rec: 05/24/21 11:32 [facility] [id number]) OT ADL-Grooming General Evaluation Grooming Ability Independent OT ADL-Oral Care General Eval Oral Care Ability Independent OT ADL-Dressing General Eval Lower Body Dressing Ability Standby Assistance Areas Needing Assistance Socks Comments OT Dressing Comments Pt able to kale/doff his socks while seated at the edge of the bed. OT ADL-Toileting Comments OT Toileting Comments Renee in place. OT ADL-Bathing Bathing Type Bathing Type Sponge Bath General Evaluation Bathing Ability Minimal Assistance Areas Needing Assistance Retrieving/Setting Up Items, Wash/Dry Back Comments OT Bathing Comments Pt able to sponge off while at the edge of the bed. M5 OT- IP IADL's Start: 05/24/21 11:18 Freq: Status: Active Protocol: Document 05/24/21 09:00 [facility] (Rec: 05/24/21 11:32 [facility] [id number]) OT-Instrumental Activities of Daily Living Home Safety Awareness Awareness of Need for Assistance at Home Good Awareness Ability to Problem Solve Emergency Able to Problem Solve Situations Money Management Money Management Comments Pt states to have his take over to do the bills now. Meal Preparation Meal Preparation Caregiver Provides Assist Machine Whitener Machine Whitener Caregiver Provides Assist M6 OT- IP Functional Cognition Start: 05/24/21 11:18 Freq: Status: Active Protocol: Document 05/24/21 09:00 [facility] (Rec: 05/24/21 11:32 [facility] [id number]) Cognitive Factors Limiting Selfcare Function Cognitive Ability Level of Alertness Alert Patient Orientation Name,Age,Birthday,Month,Date, Year,Day of Week,Place, Situation Attention Span Ability Capable of Focused Attention, Capable of Sustained Attention Ability to Follow Commands Able to Follow Multi-Step Commands Cognitive Comments Cognitive Assessment Comments Pt intact for cognitive needs. OT- Vision and Hearing OT- Hearing Assessment OT- Hearing Assessment WFL OT- Vision Assessment Visual Acuity Glasses For Reading M7 OT- IP Mobility and Balance Start: 05/24/21 11:18 Freq: Status: Active Protocol: Document 05/24/21 09:00 [facility] (Rec: 05/24/21 11:32 [facility] [id number]) OT- Bed Mobility Assessment Rolling Type of Rolling Roll to Left Level of Assistance Standby Assistance Supine to Sit Supine to Sit Assist Standby Assistance Sit to Supine Sit to Supine Assist Standby Assistance Scooting Scooting to Edge of Bed Standby Assistance OT-Transfer Assessment Sit to and From Stand Sit to and from Stand Standby Assistance Transfers Transfer Ability Standby Assistance Technique Transfer Destination Bed,Chair Transfer Technique Stand Step Pivot Devices Transfer Assistive Devices Gait Belt,Front Wheeled Walker Comments Mobility Comments SBA for bed mobility and with FWW. Pt able to push up with left hand while right hand up on the FWW. OT- Gait Assessment Gait Gait Assistance Required: Standby Assistance OT- Balance Assessment Sitting Balance and Reactions Static Sitting Balance Ability Normal Dynamic Sitting Balance Ability Good Standing Balance and Reactions Static Standing Balance Ability Good M8 OT- IP Objective Assessments Start: 05/24/21 11:18 Freq: Status: Active Protocol: Document 05/24/21 09:00 [facility] (Rec: 05/24/21 11:32 [facility] [id number]) OT Gross Range of Motion Upper Extremity Range of Motion ROM Impairments NT due to rib fx, WFL for transfer needs at this time. OT-Muscle Tone Assessment Muscle Tone WNL Yes M9 OT- IP Assessment and Plan Start: 05/24/21 11:18 Freq: Status: Active Protocol: Document 05/24/21 09:00 [facility] (Rec: 05/24/21 11:32 [facility] [id number]) OT Summary Assessment and Plan Potential Rehabilitation Potential Good Analytic Complexity at Evaluation Moderate Summary OT Impairments Balance,Functional Mobility, Dressing,Toileting,Bathing, Toilet Transfers,Shower Transfers,Activity Tolerance Progress Towards Goals Progressing Toward Goals Assessment Summary Pt MOD complexity and main barriers are decreased activity tolerance adn now using 2L of o2 and needing increased time to do ADl needs . Pt has a supportive at home to assist and would benefit from home health. Able to give and go over information for energy conservation needs. Goals Grooming Goal Independent Dressing Goal Independent Toileting Goal Independent Bathing Goal Independent Toilet Transfer Goal Independent Shower Transfer Goal Independent Days to Meet Goals 10 Frequency of Treatment Frequency Of Treatment Once a Day Treatment Plan OT Treatment Plan ADL Training,Functional Mobility,Patient/Family Education,Discharge Planning Discharge Recommendations OT Discharge Recommendations Home with Assistance,Home Health Home Equipment Needs shower chair Transportation Needs at Discharge Private Vehicle
[2021-05-24] MEDS: TRAMADOL 50 MG TABLET PO ×2 (09:53→20:13)
[2021-05-24] MEDS: methocarbamoL 500 MG TABLET PO ×3 (09:53→20:08)
[2021-05-24] MEDS: DOXYCYCLINE HYCLATE 100 MG TABLET PO ×2 (09:53→20:08)
[2021-05-24] MEDS: GABAPENTIN 100 MG CAPSULE PO ×3 (09:53→20:08)
[2021-05-24] MEDS: guaiFENesin ER 600 MG TAB PO ×2 (09:53→20:08)
[2021-05-24] MEDS: RIVAROXABAN 10 MG TABLET 20 MG PO (09:53)
[2021-05-24] MEDS: SUCRALFATE 1 GM TABLET PO ×4 (09:53→20:08)
[2021-05-24] MEDS: PANTOPRAZOLE DR 40 MG TABLET PO (09:53)
[2021-05-24] MEDS: INSULIN LISPRO 100 UNIT/ML 3ML VIAL SUBCUT ×4 (09:53→21:40)
[2021-05-24] MEDS: ASPIRIN 81 MG CHEW TAB PO (09:53)
[2021-05-24] MEDS: FUROSEMIDE 40 MG/4 ML VIAL IV (09:54)
[2021-05-24] MEDS: CEFDINIR 300 MG CAPSULE PO ×2 (09:54→20:07)
[2021-05-24] MEDS: METOPROLOL ER 25 MG TABLET 12.5 MG PO (09:54)
[2021-05-24] MEDS: INSULIN GLARGINE 100 UNIT/ML 3ML PEN 10 UNIT SUBCUT ×2 (09:54→11:47)
[2021-05-24] MEDS: NICOTINE 14 PATCH 14 MG TOP (09:55)
--- NOTE | 2021-05-24 10:23 | CM.DPC ---
Addendum entered by DENISE Jacinto 05/24/21 11:27: ADD: SW met bedside with pt again once spouse arrived and explained role and they confirm that they are agreeable and comfortable with plan to d/c home with HH but spouse states that when pt was discharged from recently that they sent referral to [facility] and received a call from them but no scheduled first home visit yet. SW called [facility] and confirmed they have pt on their list but no appointment scheduled yet and they request new F2F, MD orders, and clinicals for billing purposes as pt hadn't been opened yet since d/c from and will prioritize pt to top of their list. TOM [facility] kindly sent new referral to [facility]. SW called [facility] and cancelled new referral. BF Original Note: DCP Home vs SNF planning Per MD, met with pt this morning and pt feeling much improved but likely not medically stable to d/c yet today but possibly tomorrow pending progress. Pt still requiring Oxygen and may need home O2 assessment prior to d/c and new home O2. Initially, plan was for SNF at d/c and referrals sent to: [facility]- called today and they have some COVID+ and currently holding on new admits [facility]- reviewing and aware pt's [facility] will need to be started today [facility]- left msg inquiring about review and auth [facility]- left msg inquiring about review and auth [facility]- left msg MD now feels that pt does not require SNF at d/c and has good home support and pt confirming this morning that preference is home with family and HH. Per OT, pt was slow with mobility but SBA and recommending home with spouse and HH. PT bedside with pt right now for initial eval. Pt has no preference on HH and therefore referral sent to [facility] based on Vendor Calendar and F2F completed but needs signature. Plan: SW to follow closely for getting F2F signed by Hospitalist and faxed along with orders and d/c summary to [facility] at discharge. DENISE Jacinto
--- NOTE | 2021-05-24 10:40 | PT.IIE ---
Current Diagnoses Heart failure, unspecified (05/22/21) Medical History (Last Reviewed 05/23/21 @ 02:43 by MERY Wrihgt) CAD (coronary artery disease) COPD (chronic obstructive pulmonary disease) Diabetes type 2, uncontrolled HFrEF (heart failure with reduced ejection fraction) History of cardiac arrest Hx of non-ST elevation myocardial infarction (NSTEMI) Hx of pneumonia due to Klebsiella pneumoniae Hypothyroidism KAYLAN treated with BiPAP Paroxysmal atrial fibrillation Tobacco dependence Physical Therapy Inpatient Evaluation/Re-Eval M1 PT/OT-IP Prior Functional Status Start: 05/24/21 08:30 Freq: NEEDED Status: Active Protocol: Document 05/24/21 10:40 AW (Rec: 05/24/21 11:08 AW [id number]) Medical Review Prior Functional Status Medical History Reviewed Yes Communication WNL Mobility and Gait Pt states before recent cardiac events, he was independent with all mobility. He now tends to use 4WW at home. Activities of Daily Living and IADL's Independent with ADL's. Pt drives. Prior Functional Level (Other details) Pt discharged from 4 days ago where he was admitted with RSV. He had TN x 2-3 and underwent CPR which broke his ribs. At discharge, he was using 2-3 L/min supplemental O2. He states he has been having pain in R posterior shoulder, ribs, bilateral knees, and right heel. He feels his pain has improved with steriod treatment and wonders if some of his pain was a result of an RA flare. Pt states he has orders but [facility] has not yet initiated service. Social History Household Members spouse,children Living Arrangements House Number of Floors (Floors) One Floor Number of Stairs To Enter/Railing? 1 NEVILLE. Pt states he uses the doorknob as needed for balance . Home Environment Standard Height Toilet,Walk in Shower Home Equipment Four Wheel Walker,Hand Held Shower,Photoengraving Etcher Apprentice,Grab Bars In Shower Additional Social History Comment Pt recently relocated from [place]. He lives in [place] with his and their 12 yo son. He has grown children who do not live nearby. He has a sister in [place] who is 10 years older. Pt's does not work outside the home and will be able to assist as needed when pt goes home. M2 PT-IP Current Condition Start: 05/24/21 08:30 Freq: NEEDED Status: Active Protocol: Document 05/24/21 10:40 AW (Rec: 05/24/21 11:08 AW [id number]) Physical Therapy Current Condition Current Condition Evaluation Date 05/24/21 Treatment Diagnosis COPD/CHF exacerbation; impaired mobility and gait; dec activity tolerance Onset Date 05/23/21 M3 PT-IP Subjective Start: 05/24/21 08:30 Freq: NEEDED Status: Active Protocol: Document 05/24/21 10:40 AW (Rec: 05/24/21 11:08 AW [id number]) Subjective Physical Therapy Visit Type Type Initial Evaluation Visit Start Time 10:20 Visit Stop Time 10:40 Total Visit Minutes 20 Physical Therapy Visit Comments Patient Comments Pt is willing to participate with PT Patient Goals Return home with spouse support and HH Therapy Pain Assessment Pain When Pain Assessed During Mobility Pain Present Pain Present Pain Reported Location Right Back Intensity 2 Scale Used Numeric (0 - 10) M4 PT-IP Mobility and Gait Start: 05/24/21 08:30 Freq: NEEDED Status: Active Protocol: Document 05/24/21 10:40 AW (Rec: 05/24/21 11:20 AW [id number]) PT-Transfer Assessment Sit to and From Stand Sit to and from Stand Standby Assistance,Use of Upper Extremities Equipment Transfer Assistive Device Gait Belt,Front Wheeled Walker ,4 Wheeled Walker Orthotic/Prosthetic Devices or Brace: No Transfers Transfer Destination Bed,Chair Transfer Technique Stand Step Pivot Transfer Ability Level of Assist Standby Assistance Comments Mobility Comments Pt was sitting up in the chair as PT arrived. BP 116/58 HR 88 Spo2 94% on 2L/min via NC. He stood SBA and used FWW to ambulate a total of 50 feet around the room SBA but with increased SOB. SpO2 dropped to 88% but recovered within a minute of sitting. Pt stood again and ambulated 25 feet with 4WW SBA. SpO2 was 90-94%. Pt was fatigued and unable to tolerate more activity. He was left with call light and tray table in reach. Gait Assessment Gait Gait Assistance Required: Standby Assistance Distance (Feet) 50 Assistive Devices Assistive Device Gait Belt,Front Wheeled Walker ,4 Wheeled Walker Orthotic/Prosthetic Devices or Brace: No Gait Deviations General Gait Pattern Antalgic,Decreased Stride Length,Decreased Feet Clearance Factors Limiting Gait Function Factors Limiting Gait Function Decreased Activity Tolerance, Decreased Sensation,Pain Comments Gait Comments See mobility comments for details. Stair Climbing Assessment Comments Stair Climbing Comments Not assessed. PT-Balance Assessment Sitting Balance and Reactions Static Sitting Balance Ability Normal Dynamic Sitting Balance Ability Good Standing Balance and Reactions Static Standing Balance Ability Good Dynamic Standing Balance Ability Good Device Used FWW/4WW M5 PT-IP Objective Assessments Start: 05/24/21 08:30 Freq: NEEDED Status: Active Protocol: Document 05/24/21 10:40 AW (Rec: 05/24/21 11:20 AW [id number]) Orientation Orientation/Cognition Level of Alertness Alert Orientation Name,Day of Week,Place, Situation Language Function Ability No Deficits Noted Safety Awareness Understands Safety Issues Memory Description No Deficits Noted Gross Range of Motion Lower Extremity ROM Assessment Within Functional Limits Strength Lower Extremity Strength Assessment Within Functional Limits Hip 4+/5 flex/abd/add; 4/5 ext Knee 4+/5 Ankle 5/5 Sensation Assessment Sensation Gross Sensation Right LE Impaired,Left LE Impaired Light Touch Impaired Proprioception (Position) Impaired Comments Sensation Comments Neuropathy affects bilateral feet. M6 PT-IP Treatment Start: 05/24/21 08:30 Freq: NEEDED Status: Active Protocol: Document 05/24/21 10:40 AW (Rec: 05/24/21 11:09 AW [id number]) Physical Therapy Treatment Education Education Provided Safety Other Treatments Other Treatment Performed Educated pt on PT plan of care and recommendation for HH services at discharge. Pt verbalized understanding. M7 PT-IP Assessment and Plan Start: 05/24/21 08:30 Freq: NEEDED Status: Active Protocol: Document 05/24/21 10:40 AW (Rec: 05/24/21 11:20 AW [id number]) PT Summary Assessment and Plan Potential Rehabilitation Potential Good Status of Condition at Evaluation Evolving Summary Impairments Pain,Sensation,Bed Mobility, Transfers,Gait,Activity Tolerance Assessment Summary Timi is a 66 yo man admitted with COPD/CHF exacerbation. He was recently discharged from [facility] where he was treated for severe RSV. He is using 2-3 L/min O2 at home. Prior to hopitalization, he was independent in all regards . On assessment, pt requires SBA with all mobility using 4WW. He has home health orders but services have not yet been initiated. Pt will be safe to discharge home with assist and home health once medically stable. Goals Bed Mobility Goal Independent Transfer Goal Independent,Four Wheeled Walker Gait Goal Independent,Four Wheel Walker Gait Distance 150 Other Goals - up/down platform step SBA Days to Meet Goals 2 Frequency of Treatment Frequency Of Treatment Once a Day Treatment Plan Physical Therapy Treatment Plan Bed Mobility Training,Transfer Training,Gait Training, Therapeutic Exercise,Balance Retraining,Discharge Planning, Hot or Cold Pack Other Recommendations and Next Treatment progress gait with 4WW; seated Focus or standing ther ex as tolerated Precautions Other Precautions monitor SpO2; take care with gait belt placement due to rib fractures Recommendations To Nursing Amount of Assist Needed Standby Assistance Discharge Recommendations PT Discharge Recommendations Home with Assistance,Home Health Transportation Needs at Discharge Private Vehicle
--- NOTE | 2021-05-24 10:52 | CM.DPNOTE ---
Faxed Home health referral packet to [facility]. Received fax conf. Christiane Meneses CM Asst.
[2021-05-24] MEDS: INSULIN LISPRO 100 UNIT/ML 3ML VIAL 20 UNIT SUBCUT (14:36)
--- NOTE | 2021-05-24 17:46 | P.PN_ITS ---
Subjective Subjective Date Patient Seen: 05/24/21 Interval history: PATIENT REPORTED THAT HIS PAIN IS BEEN FEELING MUCH BETTER OVER LAST 24 HOURS DENIES ANY CHEST PAIN TODAY NO CHEST PRESSURE NO INCREASING DYSPNEA ON EXERTION OR SHORTNESS OF BREATH SLEPT VERY WELL SPOKE TO NURSING REGARD TO BLOOD SUGAR TODAY WHICH HAS BEEN DIFFICULT TO CONTROL Exam Vital Signs (past 8 hours): - 05/24/21 09:54 05/24/21 10:43 05/24/21 14:41 Temperature 96.9 F L Pulse Rate 87 75 Respiratory Rate 16 16 Blood Pressure 117/57 L 132/52 L 118/54 L Pulse Oximetry 99 97 05/24/21 14:42 Temperature Pulse Rate 74 Respiratory Rate 16 Blood Pressure Pulse Oximetry 94 Oxygen Delivery Method Nasal Cannula Oxygen Flow Rate 2 Narrative Exam Narrative: NO ACUTE DISTRESS.? PATIENT IS AA0X3.? APPEARS OLDER THAN STATED AGE HEAD ATRAUMATIC NORMOCEPHALIC NECK : SUPPLE WITHOUT ADENOPATHY NO CAROTID BRUITS EYE:? EOMI, PERRLA, NORMAL CONJUNCTIVA; NO JAUNDICE CHEST:? REGULAR RATE.? ? NO RUBS.? PMI IS NON DISPLACED.? NO MURMURS; NORMAL S1- S2. CHEST WALL PAIN WITH PALPATION PULMONARY:? DECREASED BS OVER THE BASES.? MILD BIBASILAR CRACKLES NOTED; NO INCREASED DULLNESS TO PERCUSSION ABDOMEN:? SOFT.? NONTENDER.? NONDISTENDED.? BOWEL SOUNDS ARE PRESENT IN ALL 4 QUADRANTS. EXTREMITIES: NO EDEMA..? NO CYANOSIS CLUBBING NOTED. NEURO:? CRANIAL NERVES 2-12 GROSSLY INTACT. NO FOCAL NEUROLOGICAL DEFICIT NOTED. MSK:? NORMAL RANGE OF MOTION FOR AGE.? NO JOINT EFFUSION.? POOR MUSCULATURE PSYCH :? APPROPRIATE MOOD AND AFFECT.? ALERT, AWAKE ORIENTED X3 Objective Labs Result Diagrams: 05/24/21 05:15 05/24/21 05:15 Labs: Laboratory Results - last 24 hr 05/24/21 05/24/21 05/24/21 05:15 05:15 05:15 WBC 9.3 RBC 2.73 L Hgb 8.1 L Hct 25.0 L MCV 91.6 MCH 29.6 MCHC 32.3 RDW 19.1 H Plt Count 473 H Neut % (Auto) 93.3 H Lymph % (Auto) 5.4 L Boone % (Auto) 1.0 L Eos % (Auto) 0.0 L Baso % (Auto) 0.3 Neut # (Auto) 8600 H Lymph # (Auto) 500 L Boone # (Auto) 100 Eos # (Auto) 0 Baso # (Auto) 0 Sodium 131 L Potassium 5.8 H Chloride 96 L Carbon Dioxide 35 H BUN 44 H Creatinine 1.44 H Estimated GFR 49.4 L BUN/Creatinine Ratio 30.6 H Glucose 390 H D Calcium 9.1 Phosphorus 6.0 H Magnesium 2.4 H Total Bilirubin 0.3 AST 24 ALT 25 Alkaline Phosphatase 229 H Total Protein 7.8 Albumin 3.0 L Globulin 4.8 H Albumin/Globulin Ratio 0.6 L [facility] Medical History CAD (coronary artery disease) COPD (chronic obstructive pulmonary disease) Diabetes type 2, uncontrolled HFrEF (heart failure with reduced ejection fraction) History of cardiac arrest Hx of non-ST elevation myocardial infarction (NSTEMI) Hx of pneumonia due to Klebsiella pneumoniae Hypothyroidism KAYLAN treated with BiPAP Paroxysmal atrial fibrillation Tobacco dependence Surgical History Hx of four vessel coronary artery bypass graft Hx of prior ablation treatment Family History Father Alcoholism and drug addiction in family Mother Alzheimer disease Social History household members: spouse and children Smoking Status: Former smoker alcohol intake: never Assessment & Plan Assessment & Plan narrative: PROBLEM LIST ATYPICAL CHEST PAIN.? ACS RULED OUT.? HISTORY OF CAD. LIKELY CHEST WALL PAIN ACUTE COPD EXACERBATION. IMPROVING POSSIBLE ACUTE EXACERBATION OF HEART FAILURE WITH PRESERVED SYSTOLIC FUNCTION. IMPROVING POSSIBLE CHEST WALL CONTUSION.? SECONDARY TO RECENT CPR.? MULTIPLE BROKEN RIBS REPORTED PHYSICAL DECONDITIONING/DEBILITY INSULIN-DEPENDENT DIABETES TYPE 2 PER HISTORY HYPOTHYROIDISM FOR HISTORY HYPERTENSION PER HISTORY KAYLAN PER HISTORY PAROXYSMAL ATRIAL FIBRILLATION PER HISTORY ANEMIA. LIKELY OF ACUTE BLOOD LOSS SECONDARY TO CHEST INJURY DURING RECENT CPR ACUTE KIDNEY INJURY. APPEARS TO BE PRERENAL PLAN 05/24 PATIENT STARTED ON STEROIDS YESTERDAY HIS SYMPTOMS DID IMPROVE IN REGARD TO THE PAIN HOWEVER HIS BLOOD SUGARS FAIRLY DIFFICULT TO CONTROL OVER LAST 12 HOURS WILL DECREASE STEROID DOSE FROM B.I.D. TO DAILY WILL ALSO INCREASE LANTUS TO B.I.D. KIDNEY FUNCTION DID WORSEN OVERNIGHT WILL NEED TO AVOID ALL NEPHROTOXINS HOLD LASIX FOR NOW STARTED AND LOW 8 IV FLUID FOR THE NEXT 12 HOURS PATIENT HAS BEEN SLEEPING A BIT MORE FOR LAST 12 HOURS WHICH COULD ACCOUNT FOR DECREASED ORAL INTAKE AND SUBSEQUENTLY DECREASED FLUID INTAKE WILL CONTINUE TO FOLLOW LABS DAILY ADDITIONAL MANAGEMENT PER CLINICAL COURSE POSSIBLE DISCHARGE IN 1-3 DAYS 05/23 SPOKE TO CARDIOLOGY TEAM WELL KNOWN FROM THE PATIENT AT THE [facility]ERT[facility]ARY FACILITY NEED FOR TRANSFER AT THIS TIME IS NOT SEEN PATIENT IS A DNR AND DOES NOT WANT ANY INVASIVE PROCEDURE HE DOES HAVE? WELL-KNOWN HEART DISEASE HE WILL BE TREATED CONSERVATIVELY TROPONIN REPEATED THIS MORNING WAS AGAIN NEGATIVE WILL CONTINUE TO KEEP ON TELE AT ALL TIMES CONTINUE TO MONITOR CLOSELY HE WAS ALSO STARTED ON PAIN CONTROL MEDICATIONS TO HELP WITH DISCOMFORT CONTINUE TO MOBILIZE CLOSELY IF HE WORSENS OVER THE NEXT 24 HOURS, WE WILL ONCE AGAIN TRY AND TRANSFER TO [facility]ERTIARY FACILITY IF HE SO DESIRES ADDITIONAL MANAGEMENT PER CLINICAL COURSE Time Spent With Patient Critical Care time: I spent a total of [] minutes of critical care time on this patient's care today; this time is exclusive of procedural time. Quality VTE Deep Vein Thrombosis/Pulmonary Embolism Present on Admission: No
[2021-05-24] MEDS: SODIUM CHLORIDE 0.9% 500 ML 40 ML IV (18:19)
[2021-05-24] MEDS: SENNOSIDES 8.6 MG TABLET 17.2 MG PO (20:07)
[2021-05-24] MEDS: PRAMIPEXOLE 1 MG TABLET 2 MG PO (20:08)
[2021-05-24] MEDS: MONTELUKAST 10 MG TABLET PO (20:08)
[2021-05-24] MEDS: ATORVASTATIN 20 MG TABLET 80 MG PO (20:08)
[2021-05-24] MEDS: INSULIN GLARGINE 100 UNIT/ML 3ML PEN 15 UNIT SUBCUT (21:40)
[2021-05-25] VITALS (11 sets, daily range): BP systolic 127–147; BP diastolic 34–61; PULSE 51–83; RESP 16–22; TEMP 36–36.6; O2SAT 91–97
[2021-05-25] MEDS: SODIUM CHLORIDE 0.9% 500 ML 40 ML IV (06:06)
[2021-05-25 06:07] LABS: Add Manual Diff / Slide Review NO; Basophils Absolute Auto 100 /uL (0-100); Basophils Percent Auto 0.5 % (0-2); Eosinophils Absolute Auto 0 /uL (0-450); Hematocrit 24.6 % (41-53); Hemoglobin 7.9 g/dL (13.5-17.5); Lymphocytes Absolute Auto 1000 /uL (1100-4500); Lymphocytes Percent Auto 8.7 % (25-40); Mean Corpuscular HGB Conc 32.3 % (30-36); Mean Corpuscular Hemoglobin 29.7 PG (26-34); Monocytes Absolute Auto 500 /uL (0-900); Monocytes Percent Auto 4.3 % (3-14); Neutrophils Absolute Auto 10100 /uL (1500-7000); Neutrophils Percent Auto 86.5 % (50-75); Platelet Count 457 X10^3/uL (150-400); Red Blood Cell Count 2.68 X10^6/uL (4.5-5.9); Red Cell Distribution Width 19.2 % (11.6-14.8); White Blood Cell Count 11.7 X10^3/uL (4.5-11.0)
[2021-05-25 06:22] LABS: Alanine Aminotransferase 23 IU/L (<50); Albumin 3.1 g/dL (3.5-5.0); Albumin Globulin Ratio 0.6 (1.0-2.8); Alkaline Phosphatase 224 U/L (38-126); Aspartate Aminotransferase 28 IU/L (17-59); BUN Creatinine Ratio 46.6 (6-22); Bilirubin Total 0.3 mg/dL (0.2-1.3); Blood Urea Nitrogen 62 mg/dL (9-20); Calcium 9.1 mg/dL (8.4-10.2); Carbon Dioxide 31 mmol/L (22-32); Chloride 95 mmol/L (98-107); Estimated Glomerular Filt Rate 54.1 mL/min (>60); Globulin 4.8 g/dL (1.7-4.1); Glucose 311 mg/dL (80-110); HEMOLYSIS < 15 (0-50); Magnesium 2.4 mg/dL (1.6-2.3); Phosphorous 4.7 mg/dL (2.3-3.7); Sodium 133 mmol/L (137-145); Total Protein 7.9 g/dL (6.3-8.2)
[2021-05-25 06:23] LABS: Potassium 5.4 mmol/L (3.4-5.1)
[2021-05-25] MEDS: LEVOTHYROXINE 25 MCG TABLET PO (06:54)
[2021-05-25] MEDS: LEVOTHYROXINE 112 MCG TABLET PO (06:54)
--- NOTE | 2021-05-25 07:53 | DI.RAD.S_ITS ---
PROCEDURE: XR CHEST 1V INDICATIONS: copd; pna; congestive failure TECHNIQUE: One view of the chest was acquired. COMPARISON: [facility], CR, XR CHEST 1V, 05/22/2021, 18:15. FINDINGS: Surgical changes and devices: Median sternotomy wires are again seen. Lungs and pleura: Compared to previous study, there is interval new complete resolution of previously noted right-sided pleural effusion. Persistent small left pleural effusion is seen. Ill-defined airspace opacities are again noted in bilateral mid to lower lung camacho more prominent on the left side. No gross pneumothorax. Mediastinum: Mediastinal contours appear normal. Heart size is normal. Bones and chest wall: No suspicious bony lesions. Overlying soft tissues appear unremarkable. IMPRESSION: Interval resolution of previously noted right-sided pleural effusion. Persistent small left pleural effusion and bilateral multilobar infiltrates. No gross pneumothorax. Dictated by: Toney Zheng M.D. on 05/25/2021 at 8:09 Approved by: Toney Zheng M.D. on 05/25/2021 at 8:12
[2021-05-25] MEDS: ALBUTEROL/IPRATROPIUM 3 ML AMPUL INH (08:27)
[2021-05-25] MEDS: BUDESONIDE 0.5 MG/2 ML NEB INH ×2 (08:27→20:31)
[2021-05-25] MEDS: SUCRALFATE 1 GM TABLET PO ×4 (09:08→21:42)
[2021-05-25] MEDS: ASCORBIC ACID 500 MG TABLET PO ×2 (09:08→21:42)
[2021-05-25] MEDS: RIVAROXABAN 10 MG TABLET 20 MG PO (09:09)
[2021-05-25] MEDS: TRAMADOL 50 MG TABLET PO ×3 (09:09→21:41)
[2021-05-25] MEDS: ASPIRIN 81 MG CHEW TAB PO (09:09)
[2021-05-25] MEDS: PANTOPRAZOLE DR 40 MG TABLET PO (09:09)
[2021-05-25] MEDS: guaiFENesin ER 600 MG TAB PO ×2 (09:09→21:42)
[2021-05-25] MEDS: methocarbamoL 500 MG TABLET PO ×3 (09:09→21:41)
[2021-05-25] MEDS: CYANOCOBALAMIN (VITAMIN B-12) 100 MCG TABLET PO (09:09)
[2021-05-25] MEDS: GABAPENTIN 100 MG CAPSULE PO ×3 (09:10→21:41)
[2021-05-25] MEDS: PRENATAL VIT,CALC/IRON/FOLIC 1 TABLET 1 TAB PO (09:10)
[2021-05-25] MEDS: NICOTINE 14 PATCH 14 MG TOP (09:10)
[2021-05-25] MEDS: DOXYCYCLINE HYCLATE 100 MG TABLET PO ×2 (09:10→21:42)
[2021-05-25] MEDS: INSULIN LISPRO 100 UNIT/ML 3ML VIAL SUBCUT ×4 (09:28→21:52)
[2021-05-25] MEDS: INSULIN GLARGINE 100 UNIT/ML 3ML PEN 10 UNIT SUBCUT (09:32)
[2021-05-25] MEDS: INSULIN GLARGINE 100 UNIT/ML 3ML PEN 15 UNIT SUBCUT (09:42)
[2021-05-25] MEDS: CEFDINIR 300 MG CAPSULE PO ×2 (09:48→21:43)
--- NOTE | 2021-05-25 10:45 | CM.DPC ---
DCP continued: CM met with MD during AM rounds and got F2F signed and faxed to [facility] along with PT, OT and H&P for there review. Cm also spoke with [facility] and they stated they can accept the referral will just need DC summary when it is completed. Cm will fax DC summary once it is done. Patient plan to DC home today with [facility] and his spouse to help him with his recovery. Cm will follow the patient to help assist with any new DC planning needs that might arise prior to DC. Ele Mckenzie RN Case manger
--- NOTE | 2021-05-25 12:03 | PC.NURSE ---
Addendum entered by Kin Noel R.N. 05/25/21 19:43: Pt has not voided yet, next shift will bladder scan and monitor. Pt expects to go home tomorrow once he has voided. Addendum entered by Kin Noel R.N. 05/25/21 14:42: Pt's discharge held till tomorrow. presently at bedside. Dr. Britt to come speak with family about plan. Renee discontinued per orders. Original Note: Pt arousable and conversant. States secretions are better but a bit tougher. RN spoke with RT to discuss plan of care. Pt placed on cpap while he is sleeping. Sat 96%.. Pt appears restful, RR eased and rythmic.
--- NOTE | 2021-05-25 12:58 | OT.IPNOTE ---
Checked on pt twice, and pt asleep.
--- NOTE | 2021-05-25 13:25 | P.DS_ITS ---
History of Present Illness History of Present Illness Date Patient Seen: 05/26/21 Chief complaint: Suspected COPD/CHF Exacerbation Narrative: History of Present Illness History of Present Illness Date Patient Seen:?05/22/21 Time Patient Seen:?23:00 Narrative: Timi Piper is a 66 y.o. male recently relocated from [place] with a significant cardiac history presented today to the ED for increased shortness of breath, found by the ED provider to be in congestive heart failure and chronic obstructive pulmonary disease to be in exacerbation.? He is status post 4 vessel bypass in 2019, postoperative atrial fibrillation status post ablation in June of 2020 anticoagulated on rivaroxaban with mild to moderate aortic stenosis, diabetes type 2, hypertension, continued tobacco use, COPD, obstructive sleep apnea on BiPAP, hypothyroidism and rheumatoid arthritis. Much of this history is obtained from the patient's and his PCP, Dr. Yusuf Costa his family medicine [facility] physician in [place], [place] as well as review of hospital records from [facility] that Dr. Costa faxed over to me.? He complains of significant right sided pain in his scapula and ribs due to the CPR that was done on 05/02. He states he is weak and unable to do activities of daily living. He denies nausea or vomiting, abdominal or chest pain, dysuria, diarrhea or constipation. He does endorse having neuropathy of both of his feet and exertional intolerance. The patient was discharged approximately 3 days ago from the [facility] after a 2-week stay initially for hypoxia and having multiple PEAs arrest prior to and during transport.? On May 02, he presented to [facility] in [place].? We do not have [facility]'s records however per his PCP he was found to have tested positive for RSV and was hypoxic.? He states that [facility]'s ED had given him a neb treatment and then the patient became very hypoxic and was intubated at [facility].? According to Dr. Costa, the patient went into PEA and was coded while being wheeled out to [facility].? He was then returned back to the [facility] ED were the patient was noted to have gone into PEA and subsequently had two more PEA arrests.? Apparently the patient also needed to be intubated twice as the 1st intubation resulted in the to being advanced too far.? He was eventually air transported to [facility] and per the notes that I have received from their facility in the CCU for a COPD exacerbation requiring intubation secondary to RSV.? He was also found to have a non STEMI, post TTE indicated moderate left ventricular systolic dysfunction with an EF of 40% and at that time troponin peaked at 0.64.? Per their report he required pressors had H age ELIUD secondary to diabetic ketoacidosis.? He was treated for COPD exacerbation with steroids and antibiotics.? They also transfer him to acute care due to her worsening respiratory status and was found to have a Klebsiella pneumonia and treated for 7 days of antibiotics secondary to possible aspiration due to endotracheal tube irrigation.? Patient was transferred back to the acute care floor on May 13 and weaned off oxygen with pulmonary hygiene, inhaler and DuoNebs.? He did develop chest pain on May 16 with of mildly elevated troponin of 0.8 and worsening T-wave inversions in leads V1 through V6 and started on a heparin drip for 2 days.? They did a second TTE which showed a improved ejection fraction to 69%.? Per Dr. Costa, he developed an NATALY during his admission after being started on an ARB, which was discontinued. During the patient's stay he did not want to undergo invasive treatment and declined rehab.? Per the notes Palliative Care was consulted and the patient decided to be DNR/DNI status but is amenable to medical management and possibly going to rehab for strengthening and mobilization. [facility] records that were sent with the patient when he arrived to the medical floor were of a post discharge visit to their facility for shortness of breath and discharged on the same day. Chest x-ray ordered by the emergency department reported ?Mild bilateral effusions with superimposed edema versus atelectasis/pneumonia.? He was administered a 1 time dose of IV Lasix 40 mg in the ED. Patient's temp is 98.3?, blood pressure 129/50, heart rate 81, respiratory rate 20, oxygen saturation of 96% on 3 L, he weighs 77.5 kg with a BMI of 24.5.? He is mildly anemic with a hemoglobin and hematocrit of 9.7 and 29.5 respectively, platelet count is 553, he does have a left shift with a mildly elevated neutrophil count of 7400, his potassium is 5.2, CO2 34 BUN 21 creatinine 1.24 with EGFR of 58.7, glucose is elevated at 118, magnesium 2.4, alk-phos 311, total CK less than 20, his proBNP is 6280, his troponin is normal, procalcitonin is normal and viral panel including COVID-19 PCR is negative. Discharge Providers Provider Date of admission: 05/22/21 21:51 Discharge Date: 05/25/21 Consults: 05/23/21 00:36 Consult to Physical Therapy Evaluate & Treat Comment: weakness/debility Physician Instructions: Evaluate and Treat 05/23/21 00:38 Consult to Respiratory Therapy Evaluate & Treat Comment: COPD Exacerbation Physician Instructions: Evaluate and treat 05/23/21 07:29 Consult to Occupational Therapy Evaluate & Treat Comment: Physician Instructions: Evaluate and treat Consult to Physical Therapy Evaluate & Treat Comment: Physician Instructions: Evaluate and Treat Discharge provider: Fred Goodwin DO Summary Hospital Course Discharge Diagnosis: ATYPICAL CHEST PAIN.? ACS RULED OUT.? HISTORY OF CAD.? LIKELY CHEST WALL PAIN ACUTE COPD EXACERBATION.? IMPROVING POSSIBLE ACUTE EXACERBATION OF HEART FAILURE WITH PRESERVED SYSTOLIC FUNCTION.? IMPROVING POSSIBLE CHEST WALL CONTUSION.? SECONDARY TO RECENT CPR.? MULTIPLE BROKEN RIBS REPORTED PHYSICAL DECONDITIONING/DEBILITY. MULTIFACTORIAL INSULIN-DEPENDENT DIABETES TYPE 2 PER HISTORY LAST A1C LESS THAN 8 HYPOTHYROIDISM FOR HISTORY. CONTINUE HOME MEDS HYPERTENSION PER HISTORY. CONTINUE HOME MED KAYLAN PER HISTORY. ON CPAP/BIPAP HER HOME PAROXYSMAL ATRIAL FIBRILLATION PER HISTORY. RATE FAIRLY CONTROLLED ?ANEMIA.? LIKELY OF ACUTE BLOOD LOSS SECONDARY TO CHEST INJURY DURING RECENT CPR ?ACUTE KIDNEY INJURY ON POSSIBLE CHRONIC KIDNEY DISEASE STAGE 2-3. IMPROVED Hospital Course: THIS IS A 66-YEAR-OLD MALE ADMITTED TO THE HOSPITAL WITH MULTIPLE COMPLAINTS. HE WAS TREATED FOR CHF EXACERBATION. SOME FLUID CONGESTION WERE NOTED ON INITIAL IMAGING WHICH SHOWED IMPROVEMENT ON REPEAT FILMS I SPOKE TO ELECTRONIC SCIENCE TEACHER AT ANOTHER FACILITY TO WHOM PATIENT WAS WELL KNOWN AND DID NOT SEE THE NEED FOR TRANSFER IN ANY CASE, PATIENT SYMPTOMS WERE NOT RELATED TO HIS HEART MOST OF HIS DISCOMFORT WAS RELATED TO CHEST WALL PAIN SECONDARY TO MULTIPLE RECENT CPR PATIENT HAS BEEN PLACED ON PAIN CONTROL MEDICATION WITH GABAPENTIN, SEROQUEL, TAPER STEROID AND SCHEDULE TRAMADOL. HE HAS DONE VERY WELL. PATIENT ALSO WAS TREATED FOR COPD EXACERBATION WITH ANTIBIOTICS AND DUONEB TREATMENTS. HE USES A CPAP /BIPAP AT NIGHT. HE HAS BEEN IMPROVING WELL. NO SIGN OF WORSENING RESPIRATORY STATUS. SOME FLUID CONGESTION NOTED ON ADMISSION RESOLVED FOLLOW-UP X-RAY. PATIENT HAS BEEN ON LASIX AND DIURESING VERY WELL. AT THIS TIME HE HAS PES TO BE AT BASELINE CLINICALLY HIS LABS ARE FAIRLY STABLE. BLOOD SUGAR HAS BEEN FAIRLY DIFFICULT TO CONTROL WHILE ON STEROIDS EXPECTED HE HAS A INSULIN-DEPENDENT DIABETES AND HAS SLIDING SCALE AT HOME WHICH SHOULD BE FAIRLY SUFFICIENT HE HAS LANTUS HAS BEEN INCREASED TO B.I.D. FROM DAILY ADDITIONAL MANAGEMENT WILL BE DEFERRED TO HIS OUTPATIENT PROVIDERS. Status at Discharge Cognitive/behavioral status at discharge: at baseline, oriented Functional status at discharge: uses cane/walker Overall status at discharge: patient is progressing back to baseline Time Spent with Patient Time spent: Greater than 30 minutes Exam Vital Signs (past 8 hours): - 05/25/21 07:53 05/25/21 08:27 05/25/21 09:23 Temperature 97.3 F L Pulse Rate 51 L 75 51 L Respiratory Rate 18 16 Blood Pressure 143/58 H 143/58 H Pulse Oximetry 91 91 05/25/21 12:10 Temperature 97.0 F L Pulse Rate 80 Respiratory Rate 18 Blood Pressure 134/61 Pulse Oximetry 97 Oxygen Delivery Method Nasal Cannula Oxygen Flow Rate 2 Narrative Exam Narrative: NO ACUTE DISTRESS.? PATIENT IS AA0X3.? APPEARS OLDER THAN STATED AGE HEAD ATRAUMATIC NORMOCEPHALIC NECK : SUPPLE WITHOUT ADENOPATHY NO CAROTID BRUITS EYE:? EOMI, PERRLA, NORMAL CONJUNCTIVA; NO JAUNDICE CHEST:? REGULAR RATE.? ? NO RUBS.? PMI IS NON DISPLACED.? NO MURMURS; NORMAL S1- S2.? CHEST WALL PAIN WITH PALPATION PULMONARY:? DECREASED BS OVER THE BASES.? MILD BIBASILAR CRACKLES NOTED; NO INCREASED DULLNESS TO PERCUSSION ABDOMEN:? SOFT.? NONTENDER.? NONDISTENDED.? BOWEL SOUNDS ARE PRESENT IN ALL 4 QUADRANTS. EXTREMITIES: NO EDEMA..? NO CYANOSIS CLUBBING NOTED. NEURO:? CRANIAL NERVES 2-12 GROSSLY INTACT. NO FOCAL NEUROLOGICAL DEFICIT NOTED. MSK:? NORMAL RANGE OF MOTION FOR AGE.? NO JOINT EFFUSION.? POOR MUSCULATURE PSYCH :? APPROPRIATE MOOD AND AFFECT.? ALERT, AWAKE ORIENTED X3 Objective Labs Result Diagrams: 05/26/21 06:07 05/26/21 06:07 Labs: Laboratory Results - last 24 hr 05/25/21 05/25/21 05/25/21 05:20 05:20 05:20 WBC 11.7 H RBC 2.68 L Hgb 7.9 L Hct 24.6 L MCV 92.0 MCH 29.7 MCHC 32.3 RDW 19.2 H Plt Count 457 H Neut % (Auto) 86.5 H Lymph % (Auto) 8.7 L [place] % (Auto) 4.3 Eos % (Auto) 0.0 L Baso % (Auto) 0.5 Neut # (Auto) 03551 H Lymph # (Auto) 1000 L [place] # (Auto) 500 Eos # (Auto) 0 Baso # (Auto) 100 Sodium 133 L Potassium 5.4 H Chloride 95 L Carbon Dioxide 31 BUN 62 H Creatinine 1.33 H Estimated GFR 54.1 L BUN/Creatinine Ratio 46.6 H Glucose 311 H Calcium 9.1 Phosphorus 4.7 H D Magnesium 2.4 H Total Bilirubin 0.3 AST 28 ALT 23 Alkaline Phosphatase 224 H Total Protein 7.9 Albumin 3.1 L Globulin 4.8 H Albumin/Globulin Ratio 0.6 L PFSH Medical History CAD (coronary artery disease) COPD (chronic obstructive pulmonary disease) Diabetes type 2, uncontrolled HFrEF (heart failure with reduced ejection fraction) History of cardiac arrest Hx of non-ST elevation myocardial infarction (NSTEMI) Hx of pneumonia due to Klebsiella pneumoniae Hypothyroidism KAYLAN treated with BiPAP Paroxysmal atrial fibrillation Tobacco dependence Surgical History Hx of four vessel coronary artery bypass graft Hx of prior ablation treatment Family History Father Alcoholism and drug addiction in family Mother Alzheimer disease Social History household members: spouse and children Smoking Status: Former smoker alcohol intake: never Discharge Plan Discharge Plan Patient Disposition: Home Health Service Discharge orders & Medications Prescriptions: New Lantus Solostar U-100 Insulin 100 unit/mL (3 mL) Insulin Pen 10 unit SUBCUT BID Qty: 10 0RF ipratropium-albuterol 0.5 mg-3 mg(2.5 mg base)/3 mL solution for nebulization 3 ml inhalation Q4H PRN (Reason: shortness of breath or wheezing) Qty: 60 0RF ascorbic acid (vitamin C) [Vitamin C] 500 mg Tablet 500 mg PO BID Qty: 90 0RF cefdinir 300 mg Capsule 300 mg PO BID Qty: 14 0RF cyanocobalamin (vitamin B-12) 1,000 mcg/15 mL liquid 100 mcg PO DAILY Qty: 240 0RF methocarbamol 500 mg Tablet 500 mg PO TID Qty: 30 0RF sennosides [senna] 8.6 mg Tablet 17.2 mg PO BEDTIME Qty: 60 0RF nicotine 14 mg/24 hr Patch 24 Hour 14 mg topical DAILY Qty: 20 0RF hydrocodone-acetaminophen 5-325 mg Tablet 1 tab PO Q4HR PRN (Reason: Pain, Moderate (4-6)) Qty: 20 0RF sucralfate 1 gram Tablet 1 gm PO ACHS Qty: 240 0RF tramadol 50 mg Tablet 50 mg PO TID Qty: 30 0RF furosemide 20 mg Tablet 30 mg PO DAILY Qty: 60 0RF doxycycline hyclate 100 mg Tablet 100 mg PO BID Qty: 14 0RF dexamethasone 1 mg tablet 1 mg PO DIRECTED Qty: 30 0RF Rx Instructions: 4MG PO BID X 3 DAYS 2MG PO BID X 3 DAYS THEN 2MG PO DAILY X 2 DAYS 1MG PO DAILY X 2 DAYS O.5MG PO DAILY X 2 DAYS THEN STOP calcium carbonate [Calcium 600] 600 mg calcium (1,500 mg) tablet 600 mg PO DAILY Qty: 30 0RF albuterol sulfate 90 mcg/actuation aerosol powdr breath activated 2 inh inhalation Q4-6H PRN (Reason: shortness of breath or wheezing) Qty: 1 0RF budesonide-formoterol [Symbicort] 160-4.5 mcg/actuation HFA aerosol inhaler 2 puff inhalation Q12H Qty: 10.2 0RF ferrous sulfate 325 mg (65 mg iron) tablet 325 mg PO DAILY Qty: 60 0RF Continued pramipexole 1 mg Tablet 2 mg PO BEDTIME 0RF levothyroxine 137 mcg Tablet 137 mcg PO QAM 0RF ipratropium-albuterol 0.5 mg-3 mg(2.5 mg base)/3 mL solution for nebulization 3 ml INHALATION Q6HR 0RF glimepiride 4 mg tablet 4 mg PO QAM 0RF Label Comments: TAKE 1 TABLET BY MOUTH DAILY infliximab 100 mg Recon Soln 100 mg IV Q4W 0RF Rx Instructions: IV infusion every 4 weeks nitroglycerin 0.4 mg tablet, sublingual See Rx Instructions .ROUTE .COMPLEX 0RF Rx Instructions: 0.4 mg under the tongue every 5 minutes as needed for chest pain, max 3 doses. If no relief call 911 folic acid 1 mg Tablet 1 mg PO BEDTIME 0RF montelukast 10 mg Tablet 10 mg PO BEDTIME 0RF bisacodyl [Dulcolax (bisacodyl)] 5 mg Tablet,Delayed Release (Dr/Ec) 5 mg PO BID PRN (Reason: Constipation) 0RF gabapentin 100 mg capsule 100 mg PO TID 0RF metoprolol succinate 25 mg Tablet Extended Release 24 Hr 12.5 mg PO QAM 0RF datriqzigafj-omrofewk-wsfcgp Tablet 1 tab PO QAM 0RF insulin aspart U-100 100 unit/mL Cartridge 1 sliding scale dose SUBCUT USEASDIRECTD 0RF rosuvastatin 40 mg tablet 40 mg PO BEDTIME 0RF acetaminophen 325 mg Capsule 650 mg PO Q6H PRN (Reason: pain/fever) 0RF varenicline 1 mg Tablet 1 mg PO BID 0RF cholecalciferol (vitamin D3) 25 mcg (1,000 unit) Tablet 12.5 mcg PO QAM 0RF Xarelto 20 mg tablet 20 mg PO QAM 0RF Label Comments: TAKE 1 TABLET BY MOUTH EVERY DAY Trulicity 1.5 mg/0.5 mL pen injector 0.75 mg SUBCUT QWEEK 0RF Otrexup (PF) 22.5 mg/0.4 mL Auto-Injector 22.5 mg SUBCUT QWEEK 0RF Trelegy Ellipta 200-62.5-25 mcg Blister With Device 1 inh INHALATION QAM 0RF aspirin 81 mg Capsule 81 mg PO QAM 0RF Discontinued spironolactone 25 mg Tablet 25 mg PO QAM 0RF pantoprazole 40 mg tablet,delayed release (DR/EC) 30 mg PO QAM 0RF albuterol 90 mcg/actuation Aerosol 90 mcg INHALATION Q6HR PRN (Reason: wheezing/shortness of breath) 0RF ferrous sulfate 325 mg (65 mg iron) Capsule, Extended Release 325 mg PO Q OTHER DAY 0RF insulin glargine 100 unit/mL Cartridge 10 unit SUBCUT QPM 0RF Diet/Activity/Treatments Diet: Carb-consistent/Diabetic, Low-fat, Low-sodium and Low-cholesterol Activity: TOLERATED Skin/Wound/Dressing Care Report to your healthcare provider any signs of infection, such as:: chills, fever and night sweats Visit Report/Discharge Packet Instructions: DI for Heart Failure, DI for Chronic Obstructive Pulmonary Disease Quality VTE Deep Vein Thrombosis/Pulmonary Embolism Present on Admission: No
--- NOTE | 2021-05-25 13:33 | PT-IP ANOTE ---
Attempted to see pt at 13:33, pt refused stating he wants to save his energy for upcoming d/c.
--- NOTE | 2021-05-25 16:54 | P.PN_ITS ---
Subjective Subjective Date Patient Seen: 05/25/21 Interval history: NO SPECIFIC COMPLAINTS TODAY SPOKE TO PATIENT'S AT BEDSIDE IN REGARD TO DISCHARGE PLANNING Exam Vital Signs (past 8 hours): - 05/25/21 09:23 05/25/21 12:10 05/25/21 16:43 Temperature 97.0 F L 96.8 F L Pulse Rate 51 L 80 71 Respiratory Rate 18 17 Blood Pressure 143/58 H 134/61 139/47 L Pulse Oximetry 97 92 Oxygen Delivery Method Nasal Cannula Oxygen Flow Rate 2 Narrative Exam Narrative: NO ACUTE DISTRESS.? PATIENT IS AA0X3.? APPEARS OLDER THAN STATED AGE HEAD ATRAUMATIC NORMOCEPHALIC NECK : SUPPLE WITHOUT ADENOPATHY NO CAROTID BRUITS EYE:? EOMI, PERRLA, NORMAL CONJUNCTIVA; NO JAUNDICE CHEST:? REGULAR RATE.? ? NO RUBS.? PMI IS NON DISPLACED.? NO MURMURS; NORMAL S1-S2.? CHEST WALL PAIN WITH PALPATION PULMONARY:? DECREASED BS OVER THE BASES.? MILD BIBASILAR CRACKLES NOTED; NO INCREASED DULLNESS TO PERCUSSION ABDOMEN:? SOFT.? NONTENDER.? NONDISTENDED.? BOWEL SOUNDS ARE PRESENT IN ALL 4 QUADRANTS. EXTREMITIES: NO EDEMA..? NO CYANOSIS CLUBBING NOTED. NEURO:? CRANIAL NERVES 2-12 GROSSLY INTACT. NO FOCAL NEUROLOGICAL DEFICIT NOTED. MSK:? NORMAL RANGE OF MOTION FOR AGE.? NO JOINT EFFUSION.? POOR MUSCULATURE PSYCH :? APPROPRIATE MOOD AND AFFECT.? ALERT, AWAKE ORIENTED X3 Objective Labs Result Diagrams: 05/25/21 05:20 05/25/21 05:20 Labs: Laboratory Results - last 24 hr 05/25/21 05/25/21 05/25/21 05:20 05:20 05:20 WBC 11.7 H RBC 2.68 L Hgb 7.9 L Hct 24.6 L MCV 92.0 MCH 29.7 MCHC 32.3 RDW 19.2 H Plt Count 457 H Neut % (Auto) 86.5 H Lymph % (Auto) 8.7 L [place] % (Auto) 4.3 Eos % (Auto) 0.0 L Baso % (Auto) 0.5 Neut # (Auto) 89470 H Lymph # (Auto) 1000 L [place] # (Auto) 500 Eos # (Auto) 0 Baso # (Auto) 100 Sodium 133 L Potassium 5.4 H Chloride 95 L Carbon Dioxide 31 BUN 62 H Creatinine 1.33 H Estimated GFR 54.1 L BUN/Creatinine Ratio 46.6 H Glucose 311 H Calcium 9.1 Phosphorus 4.7 H D Magnesium 2.4 H Total Bilirubin 0.3 AST 28 ALT 23 Alkaline Phosphatase 224 H Total Protein 7.9 Albumin 3.1 L Globulin 4.8 H Albumin/Globulin Ratio 0.6 L PFSH Medical History CAD (coronary artery disease) COPD (chronic obstructive pulmonary disease) Diabetes type 2, uncontrolled HFrEF (heart failure with reduced ejection fraction) History of cardiac arrest Hx of non-ST elevation myocardial infarction (NSTEMI) Hx of pneumonia due to Klebsiella pneumoniae Hypothyroidism KAYLAN treated with BiPAP Paroxysmal atrial fibrillation Tobacco dependence Surgical History Hx of four vessel coronary artery bypass graft Hx of prior ablation treatment Family History Father Alcoholism and drug addiction in family Mother Alzheimer disease Social History household members: spouse and children Smoking Status: Former smoker alcohol intake: never Assessment & Plan Assessment & Plan narrative: DISCONTINUE VIRAMONTES CATHETER TODAYPROBLEM LIST ATYPICAL CHEST PAIN.? ACS RULED OUT.? HISTORY OF CAD.? LIKELY CHEST WALL PAIN ACUTE COPD EXACERBATION.? IMPROVING POSSIBLE ACUTE EXACERBATION OF HEART FAILURE WITH PRESERVED SYSTOLIC FUNCTION.? IMPROVING POSSIBLE CHEST WALL CONTUSION.? SECONDARY TO RECENT CPR.? MULTIPLE BROKEN RIBS REPORTED PHYSICAL DECONDITIONING/DEBILITY INSULIN-DEPENDENT DIABETES TYPE 2 PER HISTORY HYPOTHYROIDISM FOR HISTORY HYPERTENSION PER HISTORY KAYLAN PER HISTORY PAROXYSMAL ATRIAL FIBRILLATION PER HISTORY ?ANEMIA.? LIKELY OF ACUTE BLOOD LOSS SECONDARY TO CHEST INJURY DURING RECENT CPR ?ACUTE KIDNEY INJURY.? APPEARS TO BE PRERENAL PLAN 05/25 WILL DISCONTINUE VIRAMONTES CATHETER TO DISCHARGE MONITOR CLOSELY OVERNIGHT CONTINUE CURRENT MANAGEMENT OTHERWISE CHANGE SOLU-MEDROL TO PREDNISONE DISCHARGE IN THE MORNING IF CLINICALLY STABLE 05/24 ?PATIENT STARTED ON STEROIDS YESTERDAY ?HIS SYMPTOMS DID IMPROVE IN REGARD TO THE PAIN ?HOWEVER HIS BLOOD SUGARS FAIRLY DIFFICULT TO CONTROL OVER? LAST 12 HOURS ?WILL DECREASE STEROID DOSE FROM B.I.D. TO DAILY ?WILL ALSO INCREASE LANTUS TO B.I.D. ?KIDNEY FUNCTION DID WORSEN OVERNIGHT ?WILL NEED TO AVOID ALL NEPHROTOXINS ?HOLD LASIX FOR NOW ?STARTED AND LOW 8 IV FLUID FOR THE NEXT 12 HOURS ?PATIENT HAS BEEN SLEEPING A BIT MORE FOR LAST 12 HOURS WHICH COULD? ACCOUNT FOR DECREASED ORAL INTAKE ?AND SUBSEQUENTLY DECREASED FLUID INTAKE ?WILL CONTINUE TO FOLLOW LABS DAILY ?ADDITIONAL MANAGEMENT PER CLINICAL COURSE ?POSSIBLE DISCHARGE IN 1-3 DAYS 05/23 SPOKE TO CARDIOLOGY TEAM WELL KNOWN FROM THE PATIENT AT THE [facility] FACILITY NEED FOR TRANSFER AT THIS TIME IS NOT SEEN PATIENT IS A DNR AND DOES NOT WANT ANY INVASIVE PROCEDURE HE DOES HAVE? WELL-KNOWN HEART DISEASE HE WILL BE TREATED CONSERVATIVELY TROPONIN REPEATED THIS MORNING WAS AGAIN NEGATIVE WILL CONTINUE TO KEEP ON TELE AT ALL TIMES CONTINUE TO MONITOR CLOSELY HE WAS ALSO STARTED ON PAIN CONTROL MEDICATIONS TO HELP WITH DISCOMFORT CONTINUE TO MOBILIZE CLOSELY IF HE WORSENS OVER THE NEXT 24 HOURS, WE WILL ONCE AGAIN TRY AND TRANSFER TO [facility] FACILITY IF HE SO DESIRES ADDITIONAL MANAGEMENT PER CLINICAL COURSE Time Spent With Patient Critical Care time: I spent a total of [] minutes of critical care time on this patient's care today; this time is exclusive of procedural time. Quality VTE Deep Vein Thrombosis/Pulmonary Embolism Present on Admission: No
[2021-05-25] MEDS: ATORVASTATIN 20 MG TABLET 80 MG PO (21:41)
[2021-05-25] MEDS: PRAMIPEXOLE 1 MG TABLET 2 MG PO (21:41)
[2021-05-25] MEDS: MONTELUKAST 10 MG TABLET PO (21:42)
[2021-05-26] VITALS: BP 126/56; PULSE 73; RESP 18; TEMP 36.2; O2SAT 97
[2021-05-26] MEDS: INSULIN GLARGINE 100 UNIT/ML 3ML PEN 15 UNIT SUBCUT ×2 (01:15→08:29)
[2021-05-26 04:00] VITALS: BP 135/59; PULSE 67; RESP 18; TEMP 36.3; O2SAT 98
[2021-05-26 06:45] LABS: Add Manual Diff / Slide Review NO; Basophils Absolute Auto 0 /uL (0-100); Basophils Percent Auto 0.2 % (0-2); Eosinophils Absolute Auto 0 /uL (0-450); Eosinophils Percent Auto 0.1 % (2-4); Hematocrit 26.6 % (41-53); Hemoglobin 8.6 g/dL (13.5-17.5); Lymphocytes Absolute Auto 1400 /uL (1100-4500); Magnesium 2.4 mg/dL (1.6-2.3); Mean Corpuscular HGB Conc 32.1 % (30-36); Mean Corpuscular Hemoglobin 30.2 PG (26-34); Mean Corpuscular Volume 94.1 fL (80-100); Monocytes Absolute Auto 900 /uL (0-900); Monocytes Percent Auto 8.5 % (3-14); Neutrophils Absolute Auto 8100 /uL (1500-7000); Neutrophils Percent Auto 78.2 % (50-75); Platelet Count 472 X10^3/uL (150-400); Red Blood Cell Count 2.83 X10^6/uL (4.5-5.9); Red Cell Distribution Width 19.5 % (11.6-14.8); White Blood Cell Count 10.4 X10^3/uL (4.5-11.0)
[2021-05-26 06:52] LABS: Alanine Aminotransferase 26 IU/L (<50); Albumin Globulin Ratio 0.7 (1.0-2.8); Alkaline Phosphatase 194 U/L (38-126); Aspartate Aminotransferase 27 IU/L (17-59); BUN Creatinine Ratio 44.4 (6-22); Bilirubin Total 0.3 mg/dL (0.2-1.3); Blood Urea Nitrogen 52 mg/dL (9-20); Calcium 9.4 mg/dL (8.4-10.2); Carbon Dioxide 34 mmol/L (22-32); Chloride 102 mmol/L (98-107); Estimated Glomerular Filt Rate > 60.0 mL/min (>60); Globulin 4.6 g/dL (1.7-4.1); Glucose 269 mg/dL (80-110); HEMOLYSIS < 15 (0-50); Phosphorous 3.4 mg/dL (2.3-3.7); Sodium 135 mmol/L (137-145); Total Protein 7.6 g/dL (6.3-8.2)
[2021-05-26 06:56] LABS: Potassium 5.3 mmol/L (3.4-5.1)
--- NOTE | 2021-05-26 07:17 | P.DS_ITS ---
History of Present Illness History of Present Illness Chief complaint: Suspected COPD/CHF Exacerbation Narrative: History of Present Illness History of Present Illness Date Patient Seen:?05/22/21 Time Patient Seen:?23:00 Narrative: Timi Piper is a 66 y.o. male recently relocated from [place] with a significant cardiac history presented today to the ED for increased shortness of breath, found by the ED provider to be in congestive heart failure and chronic obstructive pulmonary disease to be in exacerbation.? He is status post 4 vessel bypass in 2019, postoperative atrial fibrillation status post ablation in June of 2020 anticoagulated on rivaroxaban with mild to moderate aortic stenosis, diabetes type 2, hypertension, continued tobacco use, COPD, obstructive sleep apnea on BiPAP, hypothyroidism and rheumatoid arthritis. Much of this history is obtained from the patient's and his PCP, Dr. Yusuf Costa his [facility] hospital physician in [place], [place] as well as review of hospital records from [facility] that Dr. Costa faxed over to me.? He complains of significant right sided pain in his scapula and ribs due to the CPR that was done on 05/02. He states he is weak and unable to do activities of daily living. He denies nausea or vomiting, abdominal or chest pain, dysuria, diarrhea or constipation. He does endorse having neuropathy of both of his feet and exertional intolerance. The patient was discharged approximately 3 days ago from the [facility] after a 2-week stay initially for hypoxia and having multiple PEAs arrest prior to and during transport.? On May 02, he presented to [facility] in [place].? We do not have [facility]'s records however per his PCP he was found to have tested positive for RSV and was hypoxic.? He states that [facility]'s ED had given him a neb treatment and then the patient became very hypoxic and was intubated at [facility].? According to Dr. Costa, the patient went into PEA and was coded while being wheeled out to main campus medical center.? He was then returned back to the [facility] ED were the patient was noted to have gone into PEA and subsequently had two more PEA arrests.? Apparently the patient also needed to be intubated twice as the 1st intubation resulted in the to being advanced too far.? He was eventually air transported to [facility] and per the notes that I have received from their facility in the CCU for a COPD exacerbation requiring intubation secondary to RSV.? He was also found to have a non STEMI, post TTE indicated moderate left ventricular systolic dysfunction with an EF of 40% and at that time troponin peaked at 0.64.? Per their report he required pressors had H age ELIUD secondary to diabetic ketoacidosis.? He was treated for COPD exacerbation with steroids and antibiotics.? They also transfer him to acute care due to her worsening respiratory status and was found to have a Klebsiella pneumonia and treated for 7 days of antibiotics secondary to possible aspiration due to endotracheal tube irrigation.? Patient was transferred back to the acute care floor on May 13 and weaned off oxygen with pulmonary hygiene, inhaler and DuoNebs.? He did develop chest pain on May 16 with of mildly elevated troponin of 0.8 and worsening T-wave inversions in leads V1 through V6 and started on a heparin drip for 2 days.? They did a second TTE which showed a improved ejection fraction to 69%.? Per Dr. Costa, he developed an NATALY during his admission after being started on an ARB, which was discontinued. During the patient's stay he did not want to undergo invasive treatment and declined rehab.? Per the notes Palliative Care was consulted and the patient decided to be DNR/DNI status but is amenable to medical management and possibly going to rehab for strengthening and mobilization. [facility] records that were sent with the patient when he arrived to the medical floor were of a post discharge visit to their facility for shortness of breath and discharged on the same day. Chest x-ray ordered by the emergency department reported ?Mild bilateral effusions with superimposed edema versus atelectasis/pneumonia.? He was administered a 1 time dose of IV Lasix 40 mg in the ED. Patient's temp is 98.3?, blood pressure 129/50, heart rate 81, respiratory rate 20, oxygen saturation of 96% on 3 L, he weighs 77.5 kg with a BMI of 24.5.? He is mildly anemic with a hemoglobin and hematocrit of 9.7 and 29.5 respectively, platelet count is 553, he does have a left shift with a mildly elevated neutrophil count of 7400, his potassium is 5.2, CO2 34 BUN 21 creatinine 1.24 with EGFR of 58.7, glucose is elevated at 118, magnesium 2.4, alk-phos 311, total CK less than 20, his proBNP is 6280, his troponin is normal, procalcitonin is normal and viral panel including COVID-19 PCR is negative. Discharge Providers Provider Date of admission: 05/22/21 21:51 Discharge Date: 05/26/21 Consults: 05/23/21 00:36 Consult to Physical Therapy Evaluate & Treat Comment: weakness/debility Physician Instructions: Evaluate and Treat 05/23/21 00:38 Consult to Respiratory Therapy Evaluate & Treat Comment: COPD Exacerbation Physician Instructions: Evaluate and treat 05/23/21 07:29 Consult to Occupational Therapy Evaluate & Treat Comment: Physician Instructions: Evaluate and treat Consult to Physical Therapy Evaluate & Treat Comment: Physician Instructions: Evaluate and Treat Discharge provider: Fred Goodwin, Summary Hospital Course Discharge Diagnosis: TYPICAL CHEST PAIN.? ACS RULED OUT.? HISTORY OF CAD.? LIKELY CHEST WALL PAIN ACUTE COPD EXACERBATION.? IMPROVING POSSIBLE ACUTE EXACERBATION OF HEART FAILURE WITH PRESERVED SYSTOLIC FUNCTION.? IMPROVING POSSIBLE CHEST WALL CONTUSION.? SECONDARY TO RECENT CPR.? MULTIPLE BROKEN RIBS REPORTED PHYSICAL DECONDITIONING/DEBILITY.? MULTIFACTORIAL INSULIN-DEPENDENT DIABETES TYPE 2 PER HISTORY LAST A1C LESS THAN 8 HYPOTHYROIDISM FOR HISTORY.? CONTINUE HOME MEDS HYPERTENSION PER HISTORY.? CONTINUE HOME MED KAYLAN PER HISTORY.? ON CPAP/BIPAP HER HOME PAROXYSMAL ATRIAL FIBRILLATION PER HISTORY.? RATE FAIRLY CONTROLLED ?ANEMIA.? LIKELY OF ACUTE BLOOD LOSS SECONDARY TO CHEST INJURY DURING RECENT CPR ?ACUTE KIDNEY INJURY ON POSSIBLE CHRONIC KIDNEY DISEASE STAGE 2-3.? IMPROVED Hospital Course: HIS IS A 66-YEAR-OLD MALE ADMITTED TO THE HOSPITAL WITH MULTIPLE COMPLAINTS. HE WAS TREATED FOR CHF EXACERBATION.? SOME FLUID CONGESTION WERE NOTED ON INITIAL IMAGING WHICH SHOWED IMPROVEMENT ON REPEAT FILMS I SPOKE TO LEAD PROGRAMMER AT ANOTHER FACILITY TO WHOM PATIENT WAS WELL KNOWN AND DID NOT SEE THE NEED FOR TRANSFER ?IN ANY CASE, PATIENT SYMPTOMS WERE NOT RELATED TO HIS HEART ?MOST OF HIS DISCOMFORT WAS RELATED TO CHEST WALL PAIN SECONDARY TO MULTIPLE? RECENT ? CPR ?PATIENT HAS BEEN PLACED ON PAIN CONTROL MEDICATION WITH GABAPENTIN, SEROQUEL, TAPER STEROID AND SCHEDULE TRAMADOL. ? HE HAS DONE VERY WELL. ? PATIENT ALSO WAS TREATED FOR COPD EXACERBATION WITH ANTIBIOTICS AND DUONEB TREATMENTS. ? HE USES A CPAP /BIPAP AT NIGHT. ? HE HAS BEEN IMPROVING WELL.? NO SIGN OF WORSENING RESPIRATORY STATUS. ? SOME FLUID CONGESTION NOTED ON ADMISSION RESOLVED FOLLOW-UP X-RAY. ? PATIENT HAS BEEN ON LASIX AND DIURESING VERY WELL. ? AT THIS TIME HE HAS PES TO BE AT BASELINE CLINICALLY ?HIS LABS ARE FAIRLY STABLE. ? BLOOD SUGAR HAS BEEN FAIRLY DIFFICULT TO CONTROL WHILE ON STEROIDS EXPECTED ?HE HAS A INSULIN-DEPENDENT DIABETES AND HAS SLIDING SCALE AT HOME WHICH SHOULD BE FAIRLY SUFFICIENT HE HAS LANTUS HAS BEEN INCREASED TO B.I.D. FROM DAILY ?ADDITIONAL MANAGEMENT WILL BE DEFERRED TO HIS OUTPATIENT PROVIDERS. Status at Discharge Cognitive/behavioral status at discharge: oriented Functional status at discharge: independent ambulation Overall status at discharge: patient is progressing back to baseline Time Spent with Patient Time spent: Greater than 30 minutes Exam Vital Signs (past 8 hours): Oxygen Delivery Method Nasal Cannula Oxygen Flow Rate 2 Narrative Exam Narrative: NO ACUTE DISTRESS.? PATIENT IS AA0X3.? APPEARS OLDER THAN STATED AGE HEAD ATRAUMATIC NORMOCEPHALIC NECK : SUPPLE WITHOUT ADENOPATHY NO CAROTID BRUITS EYE:? EOMI, PERRLA, NORMAL CONJUNCTIVA; NO JAUNDICE CHEST:? REGULAR RATE.? ? NO RUBS.? PMI IS NON DISPLACED.? NO MURMURS; NORMAL S1- S2.? CHEST WALL PAIN WITH PALPATION PULMONARY:? DECREASED BS OVER THE BASES.? MILD BIBASILAR CRACKLES NOTED; NO INCREASED DULLNESS TO PERCUSSION ABDOMEN:? SOFT.? NONTENDER.? NONDISTENDED.? BOWEL SOUNDS ARE PRESENT IN ALL 4 QUADRANTS. EXTREMITIES: NO EDEMA..? NO CYANOSIS CLUBBING NOTED. NEURO:? CRANIAL NERVES 2-12 GROSSLY INTACT. NO FOCAL NEUROLOGICAL DEFICIT NOTED. MSK:? NORMAL RANGE OF MOTION FOR AGE.? NO JOINT EFFUSION.? POOR MUSCULATURE PSYCH :? APPROPRIATE MOOD AND AFFECT.? ALERT, AWAKE ORIENTED X3 Objective Labs Result Diagrams: 05/26/21 06:07 05/26/21 06:07 [facility] Medical History CAD (coronary artery disease) COPD (chronic obstructive pulmonary disease) Diabetes type 2, uncontrolled HFrEF (heart failure with reduced ejection fraction) History of cardiac arrest Hx of non-ST elevation myocardial infarction (NSTEMI) Hx of pneumonia due to Klebsiella pneumoniae Hypothyroidism KAYLAN treated with BiPAP Paroxysmal atrial fibrillation Tobacco dependence Surgical History Hx of four vessel coronary artery bypass graft Hx of prior ablation treatment Family History Father Alcoholism and drug addiction in family Mother Alzheimer disease Social History household members: spouse and children Smoking Status: Former smoker alcohol intake: never Discharge Plan Discharge Plan Patient Disposition: Home Health Service Discharge orders & Medications Prescriptions: New Lantus Solostar U-100 Insulin 100 unit/mL (3 mL) Insulin Pen 10 unit SUBCUT BID Qty: 10 0RF ipratropium-albuterol 0.5 mg-3 mg(2.5 mg base)/3 mL solution for nebulization 3 ml inhalation Q4H PRN (Reason: shortness of breath or wheezing) Qty: 60 0RF ascorbic acid (vitamin C) [Vitamin C] 500 mg Tablet 500 mg PO BID Qty: 90 0RF cefdinir 300 mg Capsule 300 mg PO BID Qty: 14 0RF cyanocobalamin (vitamin B-12) 1,000 mcg/15 mL liquid 100 mcg PO DAILY Qty: 240 0RF methocarbamol 500 mg Tablet 500 mg PO TID Qty: 30 0RF sennosides [senna] 8.6 mg Tablet 17.2 mg PO BEDTIME Qty: 60 0RF nicotine 14 mg/24 hr Patch 24 Hour 14 mg topical DAILY Qty: 20 0RF hydrocodone-acetaminophen 5-325 mg Tablet 1 tab PO Q4HR PRN (Reason: Pain, Moderate (4-6)) Qty: 20 0RF sucralfate 1 gram Tablet 1 gm PO ACHS Qty: 240 0RF tramadol 50 mg Tablet 50 mg PO TID Qty: 30 0RF furosemide 20 mg Tablet 30 mg PO DAILY Qty: 60 0RF doxycycline hyclate 100 mg Tablet 100 mg PO BID Qty: 14 0RF dexamethasone 1 mg tablet 1 mg PO DIRECTED Qty: 30 0RF Rx Instructions: 4MG PO BID X 3 DAYS 2MG PO BID X 3 DAYS THEN 2MG PO DAILY X 2 DAYS 1MG PO DAILY X 2 DAYS O.5MG PO DAILY X 2 DAYS THEN STOP calcium carbonate [Calcium 600] 600 mg calcium (1,500 mg) tablet 600 mg PO DAILY Qty: 30 0RF albuterol sulfate 90 mcg/actuation aerosol powdr breath activated 2 inh inhalation Q4-6H PRN (Reason: shortness of breath or wheezing) Qty: 1 0RF budesonide-formoterol [Symbicort] 160-4.5 mcg/actuation HFA aerosol inhaler 2 puff inhalation Q12H Qty: 10.2 0RF ferrous sulfate 325 mg (65 mg iron) tablet 325 mg PO DAILY Qty: 60 0RF Continued pramipexole 1 mg Tablet 2 mg PO BEDTIME 0RF levothyroxine 137 mcg Tablet 137 mcg PO QAM 0RF ipratropium-albuterol 0.5 mg-3 mg(2.5 mg base)/3 mL solution for nebulization 3 ml INHALATION Q6HR 0RF glimepiride 4 mg tablet 4 mg PO QAM 0RF Label Comments: TAKE 1 TABLET BY MOUTH DAILY infliximab 100 mg Recon Soln 100 mg IV Q4W 0RF Rx Instructions: IV infusion every 4 weeks nitroglycerin 0.4 mg tablet, sublingual See Rx Instructions .ROUTE .COMPLEX 0RF Rx Instructions: 0.4 mg under the tongue every 5 minutes as needed for chest pain, max 3 doses. If no relief call 911 folic acid 1 mg Tablet 1 mg PO BEDTIME 0RF montelukast 10 mg Tablet 10 mg PO BEDTIME 0RF bisacodyl [Dulcolax (bisacodyl)] 5 mg Tablet,Delayed Release (Dr/Ec) 5 mg PO BID PRN (Reason: Constipation) 0RF gabapentin 100 mg capsule 100 mg PO TID 0RF metoprolol succinate 25 mg Tablet Extended Release 24 Hr 12.5 mg PO QAM 0RF dwmisauvhegj-cvezvvwz-wljoku Tablet 1 tab PO QAM 0RF insulin aspart U-100 100 unit/mL Cartridge 1 sliding scale dose SUBCUT USEASDIRECTD 0RF rosuvastatin 40 mg tablet 40 mg PO BEDTIME 0RF acetaminophen 325 mg Capsule 650 mg PO Q6H PRN (Reason: pain/fever) 0RF varenicline 1 mg Tablet 1 mg PO BID 0RF cholecalciferol (vitamin D3) 25 mcg (1,000 unit) Tablet 12.5 mcg PO QAM 0RF Xarelto 20 mg tablet 20 mg PO QAM 0RF Label Comments: TAKE 1 TABLET BY MOUTH EVERY DAY Trulicity 1.5 mg/0.5 mL pen injector 0.75 mg SUBCUT QWEEK 0RF Otrexup (PF) 22.5 mg/0.4 mL Auto-Injector 22.5 mg SUBCUT QWEEK 0RF Trelegy Ellipta 200-62.5-25 mcg Blister With Device 1 inh INHALATION QAM 0RF aspirin 81 mg Capsule 81 mg PO QAM 0RF Discontinued spironolactone 25 mg Tablet 25 mg PO QAM 0RF pantoprazole 40 mg tablet,delayed release (DR/EC) 30 mg PO QAM 0RF albuterol 90 mcg/actuation Aerosol 90 mcg INHALATION Q6HR PRN (Reason: wheezing/shortness of breath) 0RF ferrous sulfate 325 mg (65 mg iron) Capsule, Extended Release 325 mg PO Q OTHER DAY 0RF insulin glargine 100 unit/mL Cartridge 10 unit SUBCUT QPM 0RF Diet/Activity/Treatments Diet: Carb-consistent/Diabetic, Low-fat, Low-sodium and Low-cholesterol Activity: TOLERATED Skin/Wound/Dressing Care Report to your healthcare provider any signs of infection, such as:: chills, fever and night sweats Visit Report/Discharge Packet Instructions: DI for Heart Failure, DI for Chronic Obstructive Pulmonary Disease Quality VTE Deep Vein Thrombosis/Pulmonary Embolism Present on Admission: No
[2021-05-26 08:19] VITALS: BP 151/73; PULSE 79; RESP 18; TEMP 36.6; O2SAT 95
[2021-05-26] MEDS: INSULIN LISPRO 100 UNIT/ML 3ML VIAL SUBCUT (08:30)
[2021-05-26] MEDS: PANTOPRAZOLE DR 40 MG TABLET PO (08:31)
[2021-05-26] MEDS: predniSONE 5 MG TABLET 15 MG PO (08:31)
[2021-05-26] MEDS: NICOTINE 14 PATCH 14 MG TOP (08:31)
[2021-05-26] MEDS: METOPROLOL ER 25 MG TABLET 12.5 MG PO (08:32)
[2021-05-26] MEDS: LEVOTHYROXINE 25 MCG TABLET PO (08:32)
[2021-05-26] MEDS: LEVOTHYROXINE 112 MCG TABLET PO (08:32)
[2021-05-26] MEDS: DOXYCYCLINE HYCLATE 100 MG TABLET PO (08:33)
[2021-05-26] MEDS: RIVAROXABAN 10 MG TABLET 20 MG PO (08:33)
[2021-05-26] MEDS: FUROSEMIDE 20 MG TABLET PO (08:33)
[2021-05-26] MEDS: GABAPENTIN 100 MG CAPSULE PO (08:33)
[2021-05-26] MEDS: CYANOCOBALAMIN (VITAMIN B-12) 100 MCG TABLET PO (08:33)
[2021-05-26] MEDS: ASPIRIN 81 MG CHEW TAB PO (08:33)
[2021-05-26] MEDS: TRAMADOL 50 MG TABLET PO (08:33)
[2021-05-26] MEDS: guaiFENesin ER 600 MG TAB PO (08:34)
[2021-05-26] MEDS: CEFDINIR 300 MG CAPSULE PO (08:34)
[2021-05-26] MEDS: methocarbamoL 500 MG TABLET PO (08:34)
[2021-05-26] MEDS: PRENATAL VIT,CALC/IRON/FOLIC 1 TABLET 1 TAB PO (08:34)
[2021-05-26] MEDS: ASCORBIC ACID 500 MG TABLET PO (08:34)
[2021-05-26] MEDS: SUCRALFATE 1 GM TABLET PO (08:34)
--- NOTE | 2021-05-26 10:44 | CM.DPC ---
DCP Cont: Patient is to discharge home today with [facility]. According to notes, [facility] had been sent face to face, orders, just need a DC Summary. Left a message with [facility] that patient is discharging home today. P: Patient is discharging home today with [facility] services. Terri Kebede RN/Road Equipment Operator
[2021-05-26] MEDS: ALBUTEROL/IPRATROPIUM 3 ML AMPUL INH (11:33)
[2021-05-26 11:35] VITALS: PULSE 79; RESP 16; O2SAT 95
--- NOTE | 2021-05-26 11:59 | PT.IPTN ---
Current Diagnoses Heart failure, unspecified (05/22/21) Physical Therapy Treatment Note M2 PT-IP Current Condition Start: 05/24/21 08:30 Freq: NEEDED Status: Discharge Protocol: Document 05/26/21 11:45 SP (Rec: 05/26/21 17:50 SP [id number]) Physical Therapy Current Condition Current Condition Evaluation Date 05/24/21 Treatment Diagnosis COPD/CHF exacerbation; impaired mobility and gait; dec activity tolerance Onset Date 05/23/21 M3 PT-IP Subjective Start: 05/24/21 08:30 Freq: NEEDED Status: Discharge Protocol: Document 05/26/21 11:45 SP (Rec: 05/26/21 17:50 SP [id number]) Subjective Physical Therapy Visit Type Type Treatment Note Visit Start Time 11:45 Visit Stop Time 11:59 Total Visit Minutes 14 Notes Vitals post mobility seated in chair: BP 149/68, HR 80 SaO2 87-91% on 2L supplimental O2 as uses at home. Number of LOCKSTITCH FRONT EDGE TAPE SEWER Visits 1 Physical Therapy Visit Comments Patient Comments Pt is willing to participate with PT Patient Goals Return home with spouse support and HH Therapy Pain Assessment Pain Present Pain Present Denied Pain M4 PT-IP Mobility and Gait Start: 05/24/21 08:30 Freq: NEEDED Status: Discharge Protocol: Document 05/26/21 11:45 SP (Rec: 05/26/21 17:50 SP [id number]) PT-Transfer Assessment Sit to and From Stand Sit to and from Stand Standby Assistance,Use of Upper Extremities Equipment Transfer Assistive Device Gait Belt,4 Wheeled Walker Orthotic/Prosthetic Devices or Brace: No Transfers Transfer Destination Chair Transfer Technique pt ambulated using 4WW Transfer Ability Level of Assist Standby Assistance,Use of Upper Extremities Comments Mobility Comments Pt was seated in chair finishing with RT and breathing tx when arrived. LOCKSTITCH FRONT EDGE TAPE SEWER acquire 4WW and PF step for mgt assessment. LOCKSTITCH FRONT EDGE TAPE SEWER educated proper use of 4WW brake mgtpre mobility and breath for safety during mobility and maintaining SaO2 >90 % with verbalized understanding. Sit> stand SBA w/ 4WW, gait inroom to PF step, ascend/descend provided CGA at GB for trunk stability and 10% A for 4WW placement on/off PF step and cues for safety body positioning as needed, stable no LOB. Pt progressed gait in room SBA w/ 4WW 60 ft, noted decrease in SaO2 87% on 2L during mobility slight SOB, cued for stop and breathe. Pt sat back in chair SBA with breath returned to low 90s on 2L. Pt had call light and all needs in reach before left. Pt is ok to return home with family to assist him when medically cleared. Recommending HHPT to improve functional strength back to PLOF I in all mobility. Gait Assessment Gait Gait Assistance Required: Standby Assistance Distance (Feet) 60 Able to Maintain Weight Bearing Status Yes During Gait Assistive Devices Assistive Device Gait Belt,4 Wheeled Walker Orthotic/Prosthetic Devices or Brace: No Gait Deviations General Gait Pattern Antalgic,Decreased Stride Length,Decreased Feet Clearance Factors Limiting Gait Function Factors Limiting Gait Function Decreased Activity Tolerance, Decreased Strength,Respiratory Distress Comments Gait Comments See mobility comments Stair Climbing Assessment Evaluation Level of Assist On Stairs Contact Guard Assistance, Minimal Assistance,1 Person Assistance Devices Stair Climbing Assistive Devices Four Wheel Walker Technique/Endurance Stair Climbing Direction Ascend and Descend Stair Climbing Technique Step to Step Number of Steps Climbed 1 Stair Climbing Set # Repetitions (reps) 1 Comments Stair Climbing Comments See mobility comments PT-Balance Assessment Sitting Balance and Reactions Static Sitting Balance Ability Normal Dynamic Sitting Balance Ability Normal Standing Balance and Reactions Static Standing Balance Ability Good Dynamic Standing Balance Ability Good Device Used 4WW M5 PT-IP Objective Assessments Start: 05/24/21 08:30 Freq: NEEDED Status: Discharge Protocol: Document 05/24/21 10:40 AW (Rec: 05/24/21 11:20 AW [id number]) Orientation Orientation/Cognition Level of Alertness Alert Orientation Name,Day of Week,Place, Situation Language Function Ability No Deficits Noted Safety Awareness Understands Safety Issues Memory Description No Deficits Noted Gross Range of Motion Lower Extremity ROM Assessment Within Functional Limits Strength Lower Extremity Strength Assessment Within Functional Limits Hip 4+/5 flex/abd/add; 4/5 ext Knee 4+/5 Ankle 5/5 Sensation Assessment Sensation Gross Sensation Right LE Impaired,Left LE Impaired Light Touch Impaired Proprioception (Position) Impaired Comments Sensation Comments Neuropathy affects bilateral feet. M6 PT-IP Treatment Start: 05/24/21 08:30 Freq: NEEDED Status: Discharge Protocol: Document 05/26/21 11:45 SP (Rec: 05/26/21 17:50 SP [id number]) Physical Therapy Treatment Education Education Provided Safety Other Treatments Other Treatment Performed Continued educated pt on PT plan of care and recommendation for HH services at discharge. Pt verbalized agreement. M7 PT-IP Assessment and Plan Start: 05/24/21 08:30 Freq: NEEDED Status: Discharge Protocol: Document 05/26/21 11:45 SP (Rec: 05/26/21 17:50 SP [id number]) PT Summary Assessment and Plan Potential Rehabilitation Potential Good Status of Condition at Evaluation Evolving Summary Impairments Pain,Sensation,Bed Mobility, Transfers,Gait,Activity Tolerance Progress Towards Goals Progressing Toward Goals,Slow Progress due to Activity Tolerance Assessment Summary Pt is SBA during all mobiltiy usign 4WW. cg- min A for PF step mgt with support for 4WW on/ off PF step. Pt is ok to return home with family to assist him when medically cleared. LOCKSTITCH FRONT EDGE TAPE SEWER recommending HHPT to improve strength and functional mobility toward PLOF I without AD. Goals Bed Mobility Goal Independent Transfer Goal Independent,Four Wheeled Walker Gait Goal Independent,Four Wheel Walker Gait Distance 150 Other Goals - up/down platform step SBA Days to Meet Goals 2 Frequency of Treatment Frequency Of Treatment Once a Day Treatment Plan Physical Therapy Treatment Plan Bed Mobility Training,Transfer Training,Gait Training, Therapeutic Exercise,Balance Retraining,Discharge Planning, Hot or Cold Pack Other Recommendations and Next Treatment progress gait with 4WW; stair Focus mgt for strengthening, seated or standing ther ex as tolerated Precautions Other Precautions monitor SpO2; take care with gait belt placement due to rib fractures Recommendations To Nursing Amount of Assist Needed Standby Assistance Discharge Recommendations PT Discharge Recommendations Home with Assistance,Home Health Transportation Needs at Discharge Private Vehicle
--- NOTE | 2021-05-26 13:17 | CM.DPNOTE ---
Faxed DC summary per Andree to [facility] and received confirm. Christiane Meneses CM Asst.
== END 2021-05-26 12:19 | disposition home health service (06) | DRG 280 ==
LOC: ED 21:48 → AC 21:51
PROVIDERS: Emergency Medicine; Hospitalist; Admitting Provider Nurse Practitioner Family; Emergency Provider Emergency Medicine; Referring Provider Emergency Medicine; Visit Provider Nurse Practitioner Family
DX: I11.0 Hypertensive heart disease with heart failure (principal); I21.4 Non-ST elevation (NSTEMI) myocardial infarction; I50.33 Acute on chronic diastolic (congestive) heart failure; J44.1 Chronic obstructive pulmonary disease with (acute) exacerbation; M96.89 Other intraoperative and postprocedural complications and disorders of the musculoskeletal system; D62 Acute posthemorrhagic anemia; I48.0 Paroxysmal atrial fibrillation; S20.219A Contusion of unspecified front wall of thorax, initial encounter; I25.10 Atherosclerotic heart disease of native coronary artery without angina pectoris; E78.5 Hyperlipidemia, unspecified; E03.9 Hypothyroidism, unspecified; G47.33 Obstructive sleep apnea (adult) (pediatric); E11.65 Type 2 diabetes mellitus with hyperglycemia; Y84.8 Other medical procedures as the cause of abnormal reaction of the patient, or of later complication, without mention of misadventure at the time of the procedure; Z79.84 Long term (current) use of oral hypoglycemic drugs; Z66 Do not resuscitate; Z95.1 Presence of aortocoronary bypass graft; Z20.822 Contact with and (suspected) exposure to COVID-19; Z79.4 Long term (current) use of insulin; Z79.01 Long term (current) use of anticoagulants; Z87.891 Personal history of nicotine dependence
CPT/HCPCS: 36415; 71045; 80053; 82550; 82962; 83036; 83690; 83735; 83880; 84100; 84145; 84484; 85025; 85610; 87633; 87635; 93005; 94640; 94660; 94762; 96374; 97116; 97162; 97166; 97530; 99285; C9803; J1815; J1940; J2270; J2920